=== PATIENT | female | born 1975 | race Caucasian/White ===

== ENCOUNTER 2018-06-11 20:36 | Emergency (ER) | payer OTHER, SELFPAY ==
[2018-06-11 20:41] VITALS: BP 157/101; PULSE 102; RESP 18; TEMP 36.2; O2SAT 96
--- NOTE | 2018-06-11 20:49 | DI.CT_ITS ---
SYMPTOMS/DIAGNOSIS: RIGHT UPPER QUADRANT ABDOMINAL PAIN, VOMITING, DIARRHEA, ? APPENDICITIS, CHOLECYSTIS, SMALL BOWEL OBSTRUCTION OR DIVERTICULITIS CT OF THE ABDOMEN AND PELVIS: Comparison is made with October,. The lung bases are clear. The liver, gallbladder, spleen, pancreas, adrenals and kidneys are unremarkable. The appendix appears normal. Diverticula are seen at the splenic flexure. There is no evidence of diverticulitis. There is no bowel dilatation or wall thickening. There are small mesenteric lymph nodes, which appear unchanged from the previous exam. There is some mild increased density in the surrounding mesentery. The bladder is unremarkable. The patient is status post hysterectomy. The aorta is normal in diameter and shows mild calcification. IMPRESSION: Stable appearance of small mesenteric lymph nodes. No acute abnormality is identified.
--- NOTE | 2018-06-11 20:49 | DI.RAD_ITS ---
SYMPTOM/DIAGNOSIS: INDIGESTION, ACID REFLUX PA AND LATERAL CHEST: Comparison is made with 02/09/17. The heart size is normal. The aorta is normal in diameter. The lungs appear clear. No hiatal hernia is visible. There are degenerative changes in the thoracic spine. IMPRESSION: No acute abnormality.
--- NOTE | 2018-06-11 20:51 | ED.GENADUL_ITS ---
Discharge Plan Disposition Patient Disposition: HOME Condition: Improving Discharge Details Chief Complaint: Abd Prob Clinical Impression: Abdominal pain, GERD (gastroesophageal reflux disease), Diarrhea, Vomiting Primary Care Provider: Harriet Sousa ED Provider: Kylah Collier Home Meds and New Rx's Prescriptions: New famotidine [Pepcid] 20 mg tablet 20 mg PO BID 14 Days Qty: 28 RF: 0 ondansetron HCl [Zofran] 4 mg tablet 4 mg PO TID PRN (Reason: nausea and vomiting) Qty: 6 RF: 0 Continued triamcinolone acetonide 0.5 % cream 1 applic TP .BID-QID Qty: 15 RF: 0 prednisone 5 mg tablet 5 mg PO DAILY Qty: 30 RF: 0 lidocaine [LC-5] 5 % cream 1 applic TP .BID-QID PRN (Reason: pain) Qty: 45 RF: 3 omeprazole 20 mg capsule,delayed release(DR/EC) 20 mg PO BID Qty: 180 RF: 0 ibuprofen 600 MG tablet 1 tab PO Q8H Qty: 21 RF: 0 Discharge Instructions Instructions: Gastroesophageal Reflux Disease (ED), Acute Nausea and Vomiting (ED), Acute Diarrhea (ED), Abdominal Pain (ED) Additional Instructions: Take Tylenol as needed and directed for pain. Take the Pepcid as directed. Take the Zofran as needed and directed for any nausea or vomiting. Follow-up with your primary care doctor in 1 week for reevaluation and for referral to surgery or gastroenterology if her symptoms do not improve or worsen for referral for possible upper endoscopy. Return immediately to the emergency department any worsening or new concerning symptoms. Referrals: Ayla Candelario DO [OSTEOPATHIC DOCTOR] - Discharge Data Discharge Physician: Kylah Collier Medical Decision Making 42-year-old female presents with acid reflux, acid taste in mouth, indigestion, right upper quadrant pain, nausea and headache for the past 5 days. Vomiting x1 2 days ago. Multiple episodes of diarrhea for the past few days. Pain worse with eating, particularly greasy fatty foods. Blood pressure mildly hypertensive. Heart rate 102. Afebrile. Patient appears nontoxic. Lungs clear to auscultation. Abdomen soft but mildly tender in right upper quadrant. No focal deficits. No meningeal signs. Differential diagnosis includes cholecystitis, biliary colic, appendicitis, small bowel obstruction. Will place an IV, bolus IV fluids, labs, urinalysis, CT abdomen and pelvis including cardiac workup with EKG, chest x-ray. Will give a dose of Pepcid and Zofran. EKG notes a rate of 87, sinus, no acute ST elevation or depression. QTc 438. QRS 104. 2330 --labs and imaging reviewed. Normal white blood cell count. Potassium 3.1. Troponin negative. Lipase negative. Chest x-ray negative. CT abdomen negative for acute findings. Patient was unable to give a urine sample and denied any urinary symptoms so this was canceled. Patient was given a GI cocktail and her symptoms improved. Patient is requesting to go home. She was given a prescription for Pepcid. She was instructed on foods to watch or hold with GERD. She is instructed to follow-up with her primary care doctor for reevaluation and for referral to general elder art or gastroenterology if her symptoms do not improve or worsen for an upper endoscopy for possible PUD or gastritis. She is instructed to return here immediately with any concerns. Medical Records Medical records reviewed: Yes I reviewed the patient's medical records. Imaging Data Radiologic Study: Radiologist's impression: CT Abdomen and Pelvis With Contrast EXAM DATE/TIME: 06/11/2018 8:51 PM FINDINGS: Lower thorax: No acute findings. ABDOMEN: Liver: Normal. No mass. Gallbladder and bile ducts: Normal. No calcified stones. No ductal dilation. Pancreas: Normal. No ductal dilation. Spleen: Normal. No splenomegaly. Adrenals: Normal. No mass. Kidneys and ureters: No renal stones or hydronephrosis. Stomach and bowel: Unremarkable. Appendix: Normal appendix. PELVIS: Bladder: Unremarkable as visualized. Reproductive: Hysterectomy. ABDOMEN and PELVIS: Intraperitoneal space: Normal. No free air. No significant fluid collection. Bones/joints: Multilevel degenerative changes throughout the spine. Grade 1 anterolisthesis of L5 on S1 and bilateral L5 pars defects. Soft tissues: Ventral hernia repair with mesh. Vasculature: Minimal atherosclerotic disease. No aneurysm or dissection. Lymph nodes: There is mild hazy stranding in the small bowel mesenteric root with associated shotty adenopathy less than 1 centimeter in size, unchanged from the prior study. This may be related to chronic inflammation. IMPRESSION: No acute findings. Mild hazy stranding in the small bowel mesentery with associated shotty adenopathy which may be related to chronic inflammation. Interval ventral hernia repair. XR Chest, 2 Views EXAM DATE/TIME: 06/11/2018 10:08 PM FINDINGS: Lungs: Unremarkable. No consolidation. Pleural space: Unremarkable. No pleural effusion. No pneumothorax. Heart/Mediastinum: Unremarkable. No cardiomegaly. Bones/joints: Unremarkable. IMPRESSION: No acute findings. Lab Data Lab results reviewed: Yes I reviewed the patient's lab results. ECG Data Attestation: I personally reviewed and interpreted this ECG (s) as follows: Interpretation: Rate of 87, sinus, no acute ST elevation or depression. QTc 438. QRS 104. HPI General Mode of arrival: ambulatory . Date/Time Provider Initiated Documentation: 06/11/18 20:48 . Limitations to Documentation: no limitations . Information obtained by: patient . HPI Narrative: Patient is a 42-year-old female who presents to the ED with a complaint of nausea, abdominal pain, and indigestion for 5 days. Patient states her symptoms started with dull intermittent right upper quadrant abdominal pain 5 days ago in addition to heartburn and acid taste in throat. Patient states that she saw her primary care doctor for the symptoms 2 days ago who diagnosed her with acid reflux. Patient states since then and especially tonight her right upper quadrant abdominal pain has gotten worse. She states the pain is worse with eating, particularly greasy food, and better with not eating. She states she vomited once 2 days ago which was mainly yellow and brown but denies any bleeding. She states she has had 7-8 episodes of watery brown diarrhea daily for the past few days but denies any rectal bleeding. She admits now to fatigue, headache and nausea, full feeling in chest and upper belly as well as right upper quadrant at this time. She denies any known fever, chest pain, shortness of breath. Related Data Home Medications Medication Instructions Recorded Confirmed ibuprofen 1 tab PO Q8H #21 tab 09/25/17 06/11/18 triamcinolone acetonide 0.5 % 1 applic TP .BID-QID #15 gm 02/24/18 06/11/18 topical cream lidocaine 5 % topical cream 1 applic TP .BID-QID PRN #45 gm 05/17/18 06/11/18 prednisone 5 mg tablet 5 mg PO DAILY #30 tab 06/01/18 06/11/18 omeprazole 20 mg capsule,delayed 20 mg PO BID #180 tab-cap 06/09/18 06/11/18 release famotidine [Pepcid] 20 mg PO BID 14 Days #28 tab 06/12/18 ondansetron HCl [Zofran] 4 mg PO TID PRN #6 tab 06/12/18 Previous Rx's Medication Instructions Recorded ibuprofen 1 tab PO Q8H #21 tab 09/25/17 triamcinolone acetonide 0.5 % 1 applic TP .BID-QID #15 gm 02/24/18 topical cream lidocaine 5 % topical cream 1 applic TP .BID-QID PRN #45 gm 05/17/18 prednisone 5 mg tablet 5 mg PO DAILY #30 tab 06/01/18 omeprazole 20 mg capsule,delayed 20 mg PO BID #180 tab-cap 06/09/18 release famotidine [Pepcid] 20 mg PO BID 14 Days #28 tab 06/12/18 ondansetron HCl [Zofran] 4 mg PO TID PRN #6 tab 06/12/18 Allergies Allergy/AdvReac Type Severity Reaction Status Date / Time No Known Allergies Allergy Unverified 06/11/18 20:42 General Stated Complaint: Abd Prob MIGUEL: 3 Review of Systems Review of Systems All systems reviewed & are unremarkable except as noted in HPI and below Constitutional Reports as per HPI, Denies chills, Denies fever(s) and Reports headache(s) Eyes Denies blurry vision ENT Denies dizziness, Reports headache(s), Denies sore throat and Denies throat swelling Cardiovascular Denies chest pain and Denies dyspnea Respiratory Denies cough and Denies dyspnea Gastrointestinal Reports abdominal pain, Reports diarrhea, Reports nausea and Reports vomiting Genitourinary Denies hematuria and Denies dysuria Musculoskeletal Denies back pain and Denies numbness Integumentary/Breasts Denies lesions and Denies rash Neurologic Denies dizziness, Reports headache(s), Denies focal weakness and Denies numbness Allergic/Immunologic Denies throat swelling FORMERLY [facility], 1928–1983 Medical History Atopic dermatitis (Chronic) Tobacco use disorder (Chronic) Tobacco use disorder Surgical History section (~1994) Dilation and curettage (02/11/04) Hernia Repair, Ventral (10/23/14) Hysterectomy, Laproscopic (04/22/04) Social History household members: children number of children: 2 highest education level completed: high school graduate service: No current occupational status: employed current occupation: [employer] pets and animals: No Hx Recent Travel: No sexually active: No current gender identity: female well-balanced diet: daily or most days caffeine: Yes Type: carbonated beverages what type of physical activity do you participate in: walking frequency: 5-6 times per week Smoking and Tabacco status: Current every day alcohol intake: former substance use type: marijuana Exam Const General: cooperative, healthy appearing and no acute distress HENMT Head: normal to inspection Face and sinus: normal facial exam Eyes General: appearance normal, both eyes and all related structures Pupils: PERRL EOM: EOM intact bilaterally Neck Neck: normal visual inspection and No submandibular swelling Lymphatic: no lymphadenopathy noted Chest Chest: normal inspection of the chest and no tenderness Resp Effort & Inspection: normal respiratory effort and able to speak in complete sentences Auscultation: clear to auscultation bilaterally Cardio Rate: regular rate Rhythm: regular rhythm GI Inspection: normal to inspection Palpation: soft, not firm, not rigid and tender in the RUQ Auscultation: normal bowel sounds Skin General skin exam: no rashes or lesions noted Neuro General: alert, awake and oriented x3 Cranial Nerves: CN's II-XI intact bilaterally Cognition: normal cognition Speech: speech normal Motor: muscle tone normal throughout and strength 5/5 throughout Sensory Exam: no sensory deficits noted Extrem General: normal to inspection, full ROM, normal capillary refill, no calf tenderness bilaterally and no edema Psych Appearance: grossly normal Mental Status: mental status grossly normal Speech and Movement: speech and movement normal Affect: normal affect Course Vital Signs Temperature 97.2 F L 06/11/18 20:41 Pulse 102 H 06/11/18 20:41 Respiratory Rate 18 06/11/18 20:41 Blood Pressure 157/101 H 06/11/18 20:41 Pulse Oximetry 96 06/11/18 20:41 Temperature 97.2 F L 06/11/18 20:41 Temperature Source Skin 06/11/18 20:41 Pulse 102 H 06/11/18 20:41 Respiratory Rate 18 06/11/18 20:41 Respiratory Effort Non-Labored 06/11/18 20:44 Blood Pressure 157/101 H 06/11/18 20:41 Pulse Oximetry 96 06/11/18 20:41 Oxygen Delivery Method Room Air 06/11/18 20:41 Oxygen Flow Rate 0 06/11/18 20:41
[2018-06-11] MEDS: Normal Saline 1,000 ML 1000 ML IV (21:06)
[2018-06-11] MEDS: Normal Saline Flush 10 ML SYR IVP ×2 (21:06→21:56)
[2018-06-11 21:11] LABS: Abs Immature Grans 0.03 k/cumm (0.0-0.09); Absolute Basophil Count 0.02 k/cumm (0.0-0.2); Absolute Eosinophil Count 0.16 k/cumm (0.0-0.7); Absolute Lymphocyte Count 2.54 k/cumm (1.2-3.4); Absolute Monocyte Count 1.16 k/cumm (0.11-0.7); Absolute Neutrophil Count 3.77 k/cumm (1.2-6.7); Basophils % 0.3; Eosinophils % 2.1; HCT 45.7 % (36.0-46.0); HGB 16.6 g/dL (12.0-15.5); Immature Grans % 0.4; Lymphocytes % 33.1; Mean Corp. HGB Concentration 36.3 g/dL (32.0-36.0); Mean Corpuscular Hemoglobin 30.3 pg (27.0-33.0); Mean Corpuscular Volume 83.5 fL (80-95); Mean Platelet Volume 9.8 fL (8.0-11.0); Monocytes % 15.1; Platelet Count 215 x1000/uL (130-400); RBC 5.47 m/cumm (4.00-5.20); RBC Distribution Width 12.5 % (11.7-14.6); White Blood Cell Count 7.68 k/cumm (4.4-10.8)
[2018-06-11] MEDS: Ondansetron 4 MG/2 ML VIAL IVP (21:28)
[2018-06-11] MEDS: FAMOTIDINE 20 MG/50 ML BAG 200 MG IVPB (21:30)
[2018-06-11 21:34] LABS: ALT 16 U/L (12-78); AST 23 U/L (15-37); Albumin 3.9 g/dL (3.4-5.0); Alkaline Phosphatase 30 U/L (46-116); Anion Gap 10.4 mmol/L (3-11); BUN 12 mg/dL (7-18); Bilirubin, Total 0.3 mg/dL (0.2-1.0); CO2 28.6 mmol/L (21.0-32.0); CREATININE 0.78 mg/dL (0.55-1.02); Calcium 8.6 mg/dL (8.5-10.1); Chloride 101 mmol/L (98-107); Glucose 112 mg/dL (70-100); Lipase 135 U/L (73-393); Magnesium 2.2 mg/dL (1.8-2.4); Potassium 3.1 mmol/L (3.5-5.1); Sodium 140 mmol/L (136-145); Total Protein 7.5 g/dL (6.4-8.2)
[2018-06-11 21:37] LABS: Troponin I < 0.02 ng/mL (0.00-0.06)
[2018-06-11] MEDS: Omnipaque 350 MG/ML 100 ML BTL IJ (21:59)
--- NOTE | 2018-06-11 23:05 | DI.VRAD_ITS ---
EXAM: CT Abdomen and Pelvis With Contrast EXAM DATE/TIME: 06/11/2018 8:51 PM CLINICAL HISTORY: 42 years old, female; Pain and signs and symptoms; Nausea and vomiting and other: Diarrhea; Abdominal pain; Localized; Right upper quadrant (ruq); Prior surgery; Surgery date: 6+ months; Surgery type: Hernia repair with mesh 3 years ago and hysterectomy; Patient HX: Ruq pain, nausea, vomiting since tuesday TECHNIQUE: Axial computed tomography images of the abdomen and pelvis with intravenous contrast. All CT scans at this facility use at least one of these dose optimization techniques: automated exposure control; mA and/or kV adjustment per patient size (includes targeted exams where dose is matched to clinical indication); or iterative reconstruction. Coronal and sagittal reformatted images were created and reviewed. CONTRAST: Contrast Material: 100 ml of Omnipaque 350; Contrast Route: IV COMPARISON: CT ABD PELVIS WITH CONTRAST 10/13/2014 7:19 PM FINDINGS: Lower thorax: No acute findings. ABDOMEN: Liver: Normal. No mass. Gallbladder and bile ducts: Normal. No calcified stones. No ductal dilation. Pancreas: Normal. No ductal dilation. Spleen: Normal. No splenomegaly. Adrenals: Normal. No mass. Kidneys and ureters: No renal stones or hydronephrosis. Stomach and bowel: Unremarkable. Appendix: Normal appendix. PELVIS: Bladder: Unremarkable as visualized. Reproductive: Hysterectomy. ABDOMEN and PELVIS: Intraperitoneal space: Normal. No free air. No significant fluid collection. Bones/joints: Multilevel degenerative changes throughout the spine. Grade 1 anterolisthesis of L5 on S1 and bilateral L5 pars defects. Soft tissues: Ventral hernia repair with mesh. Vasculature: Minimal atherosclerotic disease. No aneurysm or dissection. Lymph nodes: There is mild hazy stranding in the small bowel mesenteric root with associated shotty adenopathy less than 1 centimeter in size, unchanged from the prior study. This may be related to chronic inflammation. IMPRESSION: No acute findings. Mild hazy stranding in the small bowel mesentery with associated shotty adenopathy which may be related to chronic inflammation. Interval ventral hernia repair. Dictated and Authenticated by: Soco Lopez MD. Ordering:VIVIAN Montero MD
--- NOTE | 2018-06-11 23:06 | DI.VRAD_ITS ---
EXAM: XR Chest, 2 Views EXAM DATE/TIME: 06/11/2018 10:08 PM CLINICAL HISTORY: 42 years old, female; Condition or disease; Other: Acid reflux; Patient HX: Indigestion, acid reflux, R/O acute disease TECHNIQUE: XR of the chest, 2 views. COMPARISON: CR CHEST 2 VIEWS PA,LAT 02/09/2017 6:37 PM FINDINGS: Lungs: Unremarkable. No consolidation. Pleural space: Unremarkable. No pleural effusion. No pneumothorax. Heart/Mediastinum: Unremarkable. No cardiomegaly. Bones/joints: Unremarkable. IMPRESSION: No acute findings. Dictated and Authenticated by: Soco Lopez MD. Ordering:VIVIAN Montero MD
[2018-06-11] MEDS: Potassium Chloride 20 MEQ TABCR 40 MEQ PO (23:25)
[2018-06-11 23:38] VITALS: BP 135/88; PULSE 67; RESP 16; O2SAT 94
[2018-06-12] MEDS: Ondansetron O.D.T. 4 MG TABEF PO (01:13)
[2018-06-12 01:14] VITALS: BP 135/88; PULSE 67; RESP 16; O2SAT 94
== END 2018-06-12 01:15 | disposition home or self-care (01) ==
PROVIDERS: Emergency Provider Physician Assistant; PCP Nurse Practitioner Family
DX: K21.9 Gastro-esophageal reflux disease without esophagitis (principal); R11.2 Nausea with vomiting, unspecified; R19.7 Diarrhea, unspecified; R10.11 Right upper quadrant pain; K30 Functional dyspepsia
CPT/HCPCS: 36415; 80053; 83690; 93005; 96361; 96365; 96366; 96375; 99285; 71046; 74177; 83735; 84484; 85025; 93010; J2405; J3490

== ENCOUNTER 2018-06-24 14:29 | Outpatient (REF) | payer OTHER, SELFPAY ==
[2018-06-27 14:38] LABS: Helicobacter pylori Ag, Feces Positive (NEGAT)
== END 2018-06-24 14:49 ==
LOC: LBN 14:29
PROVIDERS: PCP Nurse Practitioner Family; Visit Provider Nurse Practitioner Family
DX: K27.9 Peptic ulcer, site unspecified, unspecified as acute or chronic, without hemorrhage or perforation (principal); R11.0 Nausea; R68.81 Early satiety
CPT/HCPCS: 87338

== ENCOUNTER 2018-07-20 18:52 | Emergency (ER) | payer OTHER, SELFPAY ==
[2018-07-20 18:55] VITALS: BP 140/87; PULSE 90; RESP 16; TEMP 36.4; O2SAT 95
--- NOTE | 2018-07-20 19:19 | W.ED.GENAD ---
Discharge Plan Disposition Patient Disposition: HOME Condition: Good Discharge Details Chief Complaint: Laceration Clinical Impression: Skin tear, Crush injury Primary Care Provider: Harriet Sousa ED Provider: Boone Jain Home Meds and New Rx's Prescriptions: No Action triamcinolone acetonide 0.5 % cream 1 applic TP .BID-QID Qty: 15 RF: 0 lidocaine [LC-5] 5 % cream 1 applic TP .BID-QID PRN (Reason: pain) Qty: 45 RF: 3 omeprazole 20 mg capsule,delayed release(DR/EC) 20 mg PO BID Qty: 180 RF: 0 Medical Decision Making This is a 42-year-old female with no past medical history who is [id number] who comes in for evaluation of her ring finger on her left hand after it was squished by a large part at work. Exam demonstrates a small L-shaped laceration that is 5 mm. No evidence of tendon injury, normal flexion and extension strength, no subungual hematoma. Laceration is notably superficial, with no evidence of deep involvement. With no signs of deep involvement, no evidence of tendon abnormality, patient signs and symptoms are inconsistent with a severe open fracture, and antibiotics are not indicated. I did discuss potential imaging and the patient would like to hold off on any image imaging at this time. I did discuss risks and benefits of holding off on imaging and the patient understands. The finger was scrubbed vigorously with chlorhexidine and washed with copious amounts of normal saline. The very small skin flap was then glued together, patient tolerated this well. Finger was placed in a splint. We discussed the importance of follow-up with her PCP, as well as reasons for which to return the patient understands. I have extensively reviewed the treatment plan and discharge instructions with the patient. I have addressed all patient concerns at this time. The patient was made aware of what symptoms to monitor for that would warrant a return to the emergency department. Discussed the plan with the patient, they demonstrate verbal understanding and agreement with our assessment and plan at this time. HPI General Date/Time Provider Initiated Documentation: 07/20/18 19:04. HPI Narrative: This is a 42-year-old female with no significant past medical history who is [id number] who presents today for injury to her left nondominant ring finger. 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 Patient's tetanus was last administered in 2014. She denies any complaint of pain at the inner phalangeal joint or the DIP joint. Pain is made worse with palpation. No bruising under the nail. No active bleeding. She denies any numbness or tingling. She denies any other injury or complaints. She denies any weakness with flexion or extension of the fingertip. No other modifying factors. Related Data Home Medications Medication Instructions Recorded Confirmed triamcinolone acetonide 0.5 % 1 applic TP .BID-QID #15 gm 02/24/18 07/20/18 topical cream lidocaine 5 % topical cream 1 applic TP .BID-QID PRN #45 gm 05/17/18 07/20/18 omeprazole 20 mg capsule,delayed 20 mg PO BID #180 tab-cap 06/09/18 07/20/18 release Previous Rx's Medication Instructions Recorded triamcinolone acetonide 0.5 % 1 applic TP .BID-QID #15 gm 02/24/18 topical cream lidocaine 5 % topical cream 1 applic TP .BID-QID PRN #45 gm 05/17/18 omeprazole 20 mg capsule,delayed 20 mg PO BID #180 tab-cap 06/09/18 release Allergies Allergy/AdvReac Type Severity Reaction Status Date / Time No Known Allergies Allergy Unverified 07/20/18 18:59 General Stated Complaint: Laceration MIGUEL: 4 Review of Systems Review of Systems All systems reviewed & are unremarkable except as noted in HPI and below PFSH Social History Smoking/Tobacco Use Status: Current every day Tobacco Type: cigarettes Alcohol Intake: former Drug use: Occasionally Substance use type: marijuana Household members: children Number of Children: 2 current occupation: [employer] [place] Pets and animals: No Sexually active: No Current gender identity: female What type of physical activity do you participate in: walking Frequency: 5-6 times per week Do you feel safe in your relationship?: Yes Exam Narrative Exam Narrative: 1.Const: Well-nourished, Well-developed, appearing stated age 2.Eyes: PERRL, no conjunctival injection, and symmetrical lids. 3.ENT: Atraumatic external nose and ears. Moist MM. Neck: Symmetric, trachea midline, No thyromegaly. 4.CVS: +S1/S2, No murmurs or gallops. Peripheral pulses 2+ and equal in all extremities. Brisk capillary refill in all extremities. 5.RESP: Unlabored respiratory effort. Clear to auscultation bilaterally. No wheezes rales or rhonchi 6.GI: Soft, Nontender/Nondistended, No hepatosplenomegaly. No guarding or rebound. 7.MSK: Normocephalic, Extremities w/o deformity. No cyanosis or clubbing, Normal movement of all extremities, , Including excellent flexion and extension of the injured finger. There is no evidence of laxity or tendon deficit for flexion extension at the DIP joint for the patient's ring finger on her left hand. No subungual hematoma. Small L-shaped laceration that is 5 mm on each angle. No evidence of deep tissue involvement. Laceration is notably superficial. 8.Skin: Warm, Dry. Please see musculoskeletal for laceration description. 9.Neuro: multigrapher II-XII grossly intact. Sensation grossly intact, no focal neurologic deficits. 10.Psych: (AAO) x3. Appropriate mood and affect Course Vital Signs Temperature 36.4 C L 07/20/18 18:55 Pulse 90 07/20/18 18:55 Respiratory Rate 16 07/20/18 18:55 Blood Pressure 140/87 07/20/18 18:55 Pulse Oximetry 95 07/20/18 18:55 Temperature 36.4 C L 07/20/18 18:55 Temperature Source Skin 07/20/18 18:55 Pulse 90 07/20/18 18:55 Respiratory Rate 16 07/20/18 18:55 Respiratory Effort 07/20/18 18:57 Blood Pressure 140/87 07/20/18 18:55 Pulse Oximetry 95 07/20/18 18:55 Pain Level 10 07/20/18 18:55
--- NOTE | 2018-07-20 19:25 | ED.GENADUL_ITS ---
Discharge Plan Disposition Patient Disposition: HOME Condition: Good Discharge Details Chief Complaint: Laceration Clinical Impression: Skin tear, Crush injury Primary Care Provider: Harriet Sousa ED Provider: Boone Jain Home Meds and New Rx's Prescriptions: No Action triamcinolone acetonide 0.5 % cream 1 applic TP .BID-QID Qty: 15 RF: 0 lidocaine [LC-5] 5 % cream 1 applic TP .BID-QID PRN (Reason: pain) Qty: 45 RF: 3 omeprazole 20 mg capsule,delayed release(DR/EC) 20 mg PO BID Qty: 180 RF: 0 Medical Decision Making This is a 42-year-old female with no past medical history who is [id number] who comes in for evaluation of her ring finger on her left hand after it was squished by a large part at work. Exam demonstrates a small L-shaped laceration that is 5 mm. No evidence of tendon injury, normal flexion and extension strength, no subungual hematoma. Laceration is notably superficial, with no evidence of deep involvement. With no signs of deep involvement, no evidence of tendon abnormality, patient signs and symptoms are inconsistent with a severe open fracture, and antibiotics are not indicated. I did discuss potential imaging and the patient would like to hold off on any image imaging at this time. I did discuss risks and benefits of holding off on imaging and the patient understands. The finger was scrubbed vigorously with chlorhexidine and washed with copious amounts of normal saline. The very small skin flap was then glued together, patient tolerated this well. Finger was placed in a splint. We discussed the importance of follow-up with her PCP, as well as reasons for which to return the patient understands. I have extensively reviewed the treatment plan and discharge instructions with the patient. I have addressed all patient concerns at this time. The patient was made aware of what symptoms to monitor for that would warrant a return to the emergency department. Discussed the plan with the patient, they demonstrate verbal understanding and agreement with our assessment and plan at this time. HPI General Date/Time Provider Initiated Documentation: 07/20/18 19:04 . HPI Narrative: This is a 42-year-old female with no significant past medical history who is [id number] who presents today for injury to her left nondominant ring finger. 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 Patient's tetanus was last administered in 2014. She denies any complaint of pain at the inner phalangeal joint or the DIP joint. Pain is made worse with palpation. No bruising under the nail. No active bleeding. She denies any numbness or tingling. She denies any other injury or complaints. She denies any weakness with flexion or extension of the fingertip. No other modifying factors. Related Data Home Medications Medication Instructions Recorded Confirmed triamcinolone acetonide 0.5 % 1 applic TP .BID-QID #15 gm 02/24/18 07/20/18 topical cream lidocaine 5 % topical cream 1 applic TP .BID-QID PRN #45 gm 05/17/18 07/20/18 omeprazole 20 mg capsule,delayed 20 mg PO BID #180 tab-cap 06/09/18 07/20/18 release Previous Rx's Medication Instructions Recorded triamcinolone acetonide 0.5 % 1 applic TP .BID-QID #15 gm 02/24/18 topical cream lidocaine 5 % topical cream 1 applic TP .BID-QID PRN #45 gm 05/17/18 omeprazole 20 mg capsule,delayed 20 mg PO BID #180 tab-cap 06/09/18 release Allergies Allergy/AdvReac Type Severity Reaction Status Date / Time No Known Allergies Allergy Unverified 07/20/18 18:59 General Stated Complaint: Laceration MIGUEL: 4 Review of Systems Review of Systems All systems reviewed & are unremarkable except as noted in HPI and below PFSH Social History Smoking/Tobacco Use Status: Current every day Tobacco Type: cigarettes Alcohol Intake: former Drug use: Occasionally Substance use type: marijuana Household members: children Number of Children: 2 current occupation: [employer] Pets and animals: No Sexually active: No Current gender identity: female What type of physical activity do you participate in: walking Frequency: 5-6 times per week Do you feel safe in your relationship?: Yes Exam Narrative Exam Narrative: 1.Const: Well-nourished, Well-developed, appearing stated age 2.Eyes: PERRL, no conjunctival injection, and symmetrical lids. 3.ENT: Atraumatic external nose and ears. Moist MM. Neck: Symmetric, trachea midline, No thyromegaly. 4.CVS: +S1/S2, No murmurs or gallops. Peripheral pulses 2+ and equal in all extremities. Brisk capillary refill in all extremities. 5.RESP: Unlabored respiratory effort. Clear to auscultation bilaterally. No wheezes rales or rhonchi 6.GI: Soft, Nontender/Nondistended, No hepatosplenomegaly. No guarding or rebound. 7.MSK: Normocephalic, Extremities w/o deformity. No cyanosis or clubbing, Normal movement of all extremities, , Including excellent flexion and extension of the injured finger. There is no evidence of laxity or tendon deficit for flexion extension at the DIP joint for the patient's ring finger on her left hand. No subungual hematoma. Small L-shaped laceration that is 5 mm on each angle. No evidence of deep tissue involvement. Laceration is notably superficial. 8.Skin: Warm, Dry. Please see musculoskeletal for laceration description. 9.Neuro: plan checker II-XII grossly intact. Sensation grossly intact, no focal neurologic deficits. 10.Psych: (AAO) x3. Appropriate mood and affect Course Vital Signs Temperature 36.4 C L 07/20/18 18:55 Pulse 90 07/20/18 18:55 Respiratory Rate 16 07/20/18 18:55 Blood Pressure 140/87 07/20/18 18:55 Pulse Oximetry 95 07/20/18 18:55 Temperature 36.4 C L 07/20/18 18:55 Temperature Source Skin 07/20/18 18:55 Pulse 90 07/20/18 18:55 Respiratory Rate 16 07/20/18 18:55 Respiratory Effort 07/20/18 18:57 Blood Pressure 140/87 07/20/18 18:55 Pulse Oximetry 95 07/20/18 18:55 Pain Level 10 07/20/18 18:55
== END 2018-07-20 20:04 | disposition home or self-care (01) ==
LOC: ER 20:09
PROVIDERS: Emergency Provider Student in an Organized Health Care Education/Training Program; PCP Nurse Practitioner Family
DX: S67.195A Crushing injury of left ring finger, initial encounter (principal); S61.215A Laceration without foreign body of left ring finger without damage to nail, initial encounter; W22.8XXA Striking against or struck by other objects, initial encounter
CPT/HCPCS: 12001

== ENCOUNTER 2018-08-10 12:06 | Outpatient (REF) | payer OTHER, SELFPAY ==
[2018-08-15 14:14] LABS: Helicobacter pylori Ag, Feces Negative (NEGAT)
== END 2018-08-10 12:26 ==
LOC: LBN 12:06
PROVIDERS: PCP Nurse Practitioner Family; Visit Provider Nurse Practitioner Family
DX: A04.8 Other specified bacterial intestinal infections (principal)
CPT/HCPCS: 87338

== ENCOUNTER 2018-08-30 02:00 | Outpatient (CLI) | payer OTHER, SELFPAY ==
--- NOTE | 2018-08-30 09:03 | DI.US_ITS ---
SYMPTOMS/DIAGNOSIS: RIGHT UPPER QUADRANT PAIN, NAUSEA, EARLY SATIETY, R10.11, R11.0, R68.81 ABDOMINAL ULTRASOUND: Comparison is made with CT dated June,. The liver is normal in size and echogenicity. There is a 7 mm hyperechoic lesion in the lateral aspect of the right lobe of the liver, which is consistent with a small hemangioma. No abnormality is visible on CT. The gallbladder is unremarkable. No stones or wall thickening is seen. There is no pericholecystic fluid. The spleen, kidneys, pancreas and aorta are unremarkable. IMPRESSION: A small liver hemangioma. No acute abnormality.
== END 2018-08-30 02:20 ==
PROVIDERS: PCP Nurse Practitioner Family; Visit Provider Nurse Practitioner
DX: R68.81 Early satiety (principal); R11.0 Nausea; R10.11 Right upper quadrant pain; D18.03 Hemangioma of intra-abdominal structures
CPT/HCPCS: 76700

== ENCOUNTER 2018-09-14 01:13 | Outpatient (CLI) | payer OTHER, SELFPAY ==
--- NOTE | 2018-09-14 08:22 | DI.NM_ITS ---
SYMPTOM/DIAGNOSIS: RUQ PAIN, NAUSEA, BLOATING, R10.9,R11.0 CCK HIDA SCAN: The patient received 4.8 millicuries of Technetium 99 M Mebrofenin. The patient then received 1.1 micrograms of CCK intravenously according to protocol. The liver, bile duct and small bowel were visualized at the appropriate time interval. There is delayed filling of the gallbladder. The gallbladder ejection fraction was calculated at 27% which is below normal (normal ejection fraction is greater than 40%). IMPRESSION: Abnormal CCK Hida scan as identified by delayed filling of the gallbladder and low gallbladder ejection fraction. This may reflect gallbladder dyskinesia.
== END 2018-09-14 01:33 ==
PROVIDERS: PCP Nurse Practitioner Family; Visit Provider Surgery
DX: R10.11 Right upper quadrant pain (principal); R11.0 Nausea; R14.0 Abdominal distension (gaseous); K87 Disorders of gallbladder, biliary tract and pancreas in diseases classified elsewhere
CPT/HCPCS: 78227

== ENCOUNTER 2018-09-26 11:10 | Day surgery (SDC) | payer OTHER, SELFPAY ==
[2018-09-26] VITALS (9 sets, daily range): BP systolic 88–139; BP diastolic 39–107; PULSE 53–79; RESP 12–22; TEMP 36–36.6; O2SAT 94–100
[2018-09-26] MEDS: Lactated Ringers 1,000 ML 80 ML IV (11:37)
[2018-09-26] MEDS: ceFAZolin 2 GM/50 ML BAG IVPB (12:27)
--- NOTE | 2018-09-26 13:45 | GB_PTH ---
PATIENT: Sophie Beaulieu LOC: [facility] U#:[id number] AGE/SX: 43/F ROOM: RE09/26/[address]: Ayla Candelario : 1975 BED: DIS: 09/26/2018 SPEC #: [id number] RECD: 09/26/18 17:40 STATUS: SANJEEV REQ #: [id number] LUCIANO: 09/26/18 13:[address]: Ayla Candelario DEPT: Surgical Specimen RECD BY: Maritza Leahy ENTERED: 09/26/18 17:41 SP TYPE: GB OTHR DR: Harriet Sousa APRN Tissues: 1 - GALLBLADDER Procedures: GROSS AND MICRO LEVEL 3 Comments: [id number]
[2018-09-26] MEDS: Cellulose,Oxidized 4X8 1 PACKET MC (13:47)
--- NOTE | 2018-09-26 14:22 | ROE_ITS ---
Date of service: 09/26/18 Time of Service: 14:20 Operative Note DATE OF PROCEDURE: 09/26/18 PRE-OP DIAGNOSIS: biliary dyskinesia POST-OP DIAGNOSIS: other (lysis of adhesions <30 mins ) PROCEDURE: lap keila lysis adhesions STRUCTURAL STEEL ENGINEER: Ellen Colby ANESTHESIA: ROSA ESTIMATED BLOOD LOSS: 10 PATHOLOGY: other COMPLICATIONS: None Patient was transported to: PACU Patient's condition: stable Procedure Description: Sophie is seen regarding acute on chronic biliary dyskenisia and is here today for laparoscopic cholecystectomy. Informed consent was obtained, explaining risks and benefits of the procedure including but not limited to bleeding, infection, pneumonia, blood clots, possible damage to bowel, bladder, blood vessels, bile ducts, possible open procedure, complications of general anesthesia and other unforetold complications. PROCEDURE: The patient agrees and is brought to the operative room suite and placed in supine position. Anesthesia was administered per the Department of Anesthesia. The patient did receive IV antibiotics. NG tube and Aponte catheter are placed. The patient was prepped and draped in the usual sterile fashion using DuraPrep scrub solution. Pause for the cause was done. 20 mL of 1% buffered lidocaine was used for local anesthetization. A stab incision was made in the umbilicus and the Verres inserted. Drop test was positive and insufflation was begun. When 15 mm of pressure was noted on the monitor, the Veress was removed and #5 port inserted. The camera was inserted through the port and shows no damage to underlying structures. A 10 mm port was then placed in the epigastric position under direct visualization following creation of local field blocks as well as two 5 mm ports in the right upper quadrant. She has dense adhesion up to the area where her umbilical hernia was reapired w/ mesh. The are taken down w/ a combination of sharp dissection adn cautery. These are only omentum adn no bowel. The GB has adhesions adhered from the stomach and omentum as well. these are taken down w/ blunt and sharp dissection. The gallbladder fundus was grasped and retracted towards the right shoulder. Infundibulum was grasped and retracted laterally. The hepat-duodenal ligament is entered. The cystic duct and artery are dissected out and the most inferior portion of the gallbladder plate is removed from the liver and the critical view of safety was obtained after clearing away all fatty material. Endo Clips were placed across the duct and artery and these structures are divided. The remainder of the gallbladder was excised from the liver bed. The gallbladder was placed in a bag and brought out. Examination of the gallbladder shows indeed the cystic duct and artery to have been divided. The remainder of the abdomen was copiously irrigated with a liter of saline. All saline is removed. There is no bleeding or bile leakage from the liver bed or the clips sites. The Salvador-Ortiz needle was used to close the 10 mm port site with an 0 Vicryl. All ports and instruments are removed. Pneumoperitoneum is evacuated and the port sites are monitored to make sure there is no bleeding at the time of desufflation. The fasca/mesh on the umbilical port is closed w/ O Vircryl. Port sites are irrigated and the skin is closed with 4-0 Monocryl in a running subcuticular fashion. Steri tapes and sterile dressings are applied. The patient tolerated the procedure well without complications, transferred to the recovery room in stable condition. ISAAC CRANE, DO
--- NOTE | 2018-09-26 14:23 | W.PM.DSUDISC ---
Discharge Plan Disposition Patient Disposition: HOME Condition: Good Discharge Details Reason For Visit: biliary dyskinesia Attending Provider: Ayla Candelario Primary Care Provider: Harriet Sousa Home Meds and New Rx's Prescriptions: New ibuprofen 800 mg tablet 800 mg PO TID PRN (Reason: pain) Qty: 30 RF: 3 ondansetron HCl 4 mg tablet 4 mg PO QID PRN (Reason: nausea and vomiting) Qty: 7 RF: 0 oxycodone 5 mg capsule 5 mg PO Q6H MDD 4 PRN (Reason: pain) Qty: 14 RF: 0 Continued triamcinolone acetonide 0.5 % cream 1 applic TP .BID-QID Qty: 15 RF: 0 lidocaine [LC-5] 5 % cream 1 applic TP .BID-QID PRN (Reason: pain) Qty: 45 RF: 3 Discharge Instructions Additional Instructions: Care after Gallbladder Surgery -You should walk frequently, gradually, increasing the distance. You may climb stairs, just go slowly. -You can take Advil 800mg 3 times a day with food for the first week for pain; you may take your prescription medication as prescribed-in addition to the Advil. Discontinue Advil if it hurts your stomach. Do not take Advil if you are intolerant to aspirin products or have stomach problems. ? Use an ice bag for the first 72 hours. This helps to decrease swelling, which causes pain. It is normal to be more sore/painful and swollen towards the end of the day and first thing in the morning. ? Gallbladder surgery can make you very nauseated; use zofran for nausea, for the first 24 hours. The nausea generally stops after 24 hours. ? Use milk of magnesia or prune juice to prevent constipation (this is a particular side effect of pain medication). Do not allow yourself to become constipated. ? Avoid fatty or greasy foods; introduce these slowly, with care, after about 1 month. Follow the low-fat diet sheet that will be given to you at the office or hospital. ? Start out eating very small, bland amounts of food. Do not take pain pills on an empty stomach. - You can remove the band-aids and take a shower 24 hours after surgery. There will be some narrow strips of tape across your incisions (under the band-aids). DO NOT REMOVE THESE. It is all right if they get wet. They will be removed in the doctor?s office. ? Do not go swimming or sit in a hot tub for two weeks. ? Replace the band-aids with clean, dry ones or leave them off. ? There are no stitches to remove. ? Do not drive your car for one week and then only if you have no pain and can move freely. Do not drive if you are taking pain narcotic pain medications. ? You may resume sexual activity whenever pain and soreness subside in 2 weeks. ? Do no lift anything over 5 lbs for the first 10 days. Minimize strenuous activity for the next two weeks. ? You may return to work in one week, or when you feel able ? You should return to [facility] in 1-2 wks. My Medications for pain and nausea are: ibuprofen and oxycodone and zofran When to Call the Office: ? If the incision becomes red or swollen, or there is more than a little drainage from it. ? If you develop a temperature higher than 100.5 F. ? If your eyes turn yellow ? Vomiting and can?t keep fluids down Stand Alone Forms: DSU Post op Instructions, Timothy Hassan (DSU) Discharge Orders Discharge Orders: Discharge Order (Routine); Ordered 09/26/18 Ordered By: Ayla Candelario DS: Diagnosis Discharge Diagnosis (1) Biliary dyskinesia: Status: Acute
[2018-09-26] MEDS: fentaNYL 100 MCG/2 ML VIAL IVP (14:54)
[2018-09-26] MEDS: HYDROcodone 5/Acetaminophen 325 TAB PO (15:36)
== END 2018-09-26 16:45 | disposition home or self-care (01) ==
PROVIDERS: PCP Nurse Practitioner Family; Visit Provider Surgery
PROC: 0FT44ZZ Resection of Gallbladder, Percutaneous Endoscopic Approach (ICD-10-PCS; CPT 47562; principal; 2018-09-26 12:30)
DX: K82.8 Other specified diseases of gallbladder (principal); K82.4 Cholesterolosis of gallbladder; F17.210 Nicotine dependence, cigarettes, uncomplicated
CPT/HCPCS: 47562; 88304; J0690; J3010

== ENCOUNTER 2019-01-05 10:54 | Emergency (ER) | payer OTHER, SELFPAY ==
[2019-01-05 10:57] VITALS: BP 151/85; PULSE 90; RESP 16; TEMP 36.7; O2SAT 97
--- NOTE | 2019-01-05 11:11 | ED.GENADUL_ITS ---
Discharge Plan Disposition Patient Disposition: HOME Condition: Stable Discharge Details Chief Complaint: Cellulitis Clinical Impression: Cellulitis of fifth toe, right Primary Care Provider: Harriet Sousa ED Provider: Schuyler Mercado Home Meds and New Rx's Prescriptions: New cephalexin 500 mg capsule 500 mg PO TID 7 Days Qty: 21 RF: 0 Discharge Instructions Instructions: Cellulitis (ED) Additional Instructions: Hard sole shoe for comfort. Take antibiotics as prescribed. Elevate to reduce pain and swelling. Return to develop a fever, shaking chills, or any other acute concern May use cast shoe if needed. Medical Decision Making 43-year-old female who was stepped on the right foot yesterday suffered a blister and today with erythema, redness, swelling. Referred for x-ray without evidence of underlying fracture. Consistent with early cellulitis which I will place her on Keflex. Offered a postop shoe for comfort. Stable for outpatient management. HPI General Mode of arrival: ambulatory . Date/Time Provider Initiated Documentation: 01/05/19 11:02 . Limitations to Documentation: no limitations . Information obtained by: patient . History of Present Illness 43 year old F presents to the emergency department with the chief complaint of Right fifth toe pain and swelling, described as moderate, Quality is described as dull and constant, and is localized to the right and lower extremity. Patient reports no radiation. Patient started experiencing this hour(s) and it has been constant. No relieving factors improve symptom(s), No exacerbating factors reported . Patient notes other (Redness); denies fever/chills. Patient did receive the following treatments prior to arrival, other (Tylenol) Related Data Home Medications Medication Instructions Recorded Confirmed cephalexin 500 mg PO TID 7 Days #21 cap 01/05/19 Previous Rx's Medication Instructions Recorded cephalexin 500 mg PO TID 7 Days #21 cap 01/05/19 Allergies Allergy/AdvReac Type Severity Reaction Status Date / Time No Known Allergies Allergy Verified 01/05/19 11:00 General Stated Complaint: Cellulitis MIGUEL: 3 Review of Systems Review of Systems Narrative: No fever or chills. Was stepped on. 6 systems reviewed and otherwise negative [facility] Medical History Atopic dermatitis (Chronic) Biliary dyskinesia (Acute) Helicobacter pylori (H. pylori) infection (Resolved) Tobacco use disorder (Chronic) Trochanteric bursitis, left hip (Chronic) Surgical History section (Resolved ~1994) x1 Dilation and curettage (Resolved 02/11/04) laparoscopy w/ bx Hernia Repair, Ventral (Resolved 10/23/14) Hysterectomy, Laproscopic (Resolved 04/22/04) BSO Social History Smoking/Tobacco Use Status: Current every day Tobacco Type: cigarettes Years smoked: 25 Alcohol Intake: former Drug use: Occasionally Substance use type: marijuana Details: marijuana yesterday alcholol months ago smoked cigarettes this morning 0900 last time. Household members: children Number of Children: 2 current occupation: [employer] Pets and animals: No Sexually active: No Current gender identity: female What type of physical activity do you participate in: walking Frequency: 5-6 times per week Do you feel safe at home: Yes Additional Social history: not in a relationship Exam Narrative Exam Narrative: GEN: awake, alert, oriented 3. Pleasant, well groomed, interactive. HEAD: Normocephalic, atraumatic ENT: Mucous membranes moist, oropharynx unremarkable, External ear exam unremarkable EXT: Full ROM, right fifth toe erythema, medial discrete ulceration of skin, dorsum of the foot is erythematous and tender. Neuro: Grossly normal neurologic exam, conversant, interactive. Psych: Speech fluent, thoughts congruent, affect normal Course Vital Signs Vital signs: Vital Signs Temperature 36.7 C 01/05/19 10:57 Pulse 90 01/05/19 10:57 Respiratory Rate 16 01/05/19 10:57 Blood Pressure 151/85 H 01/05/19 10:57 Pulse Oximetry 97 01/05/19 10:57 Temperature 36.7 C 01/05/19 10:57 Temperature Source Skin 01/05/19 10:57 Pulse 90 01/05/19 10:57 Respiratory Rate 16 01/05/19 10:57 Respiratory Effort 01/05/19 11:06 Blood Pressure 151/85 H 01/05/19 10:57 Pulse Oximetry 97 01/05/19 10:57 Oxygen Delivery Method Room Air 01/05/19 10:57 Oxygen Flow Rate 0 01/05/19 10:57 Pain Level 7 01/05/19 10:57
[2019-01-05] MEDS: Cephalexin 500 MG CAP PO (11:24)
[2019-01-05] MEDS: Ibuprofen 800 MG TAB PO (11:24)
--- NOTE | 2019-01-05 11:48 | DI.RAD_ITS ---
EXAM: XR TOE RT FIFTH INDICATION: pain after stepped on. COMPARISON: LEFT GREAT TOE from 02/09/2015 TECHNIQUE: 2D digital imaging was performed. FINDINGS: Three views were obtained. No fracture is seen. IMPRESSION:
== END 2019-01-05 12:21 | disposition home or self-care (01) ==
PROVIDERS: Emergency Provider Emergency Medicine; PCP Nurse Practitioner Family
DX: L03.031 Cellulitis of right toe (principal)
CPT/HCPCS: 99283; 73660

== ENCOUNTER 2019-01-08 15:15 | Outpatient (REF) | payer OTHER, SELFPAY ==
[2019-01-08 16:26] LABS: Abs Immature Grans 0.02 k/cumm (0.0-0.09); Absolute Basophil Count 0.02 k/cumm (0.0-0.2); Absolute Eosinophil Count 0.28 k/cumm (0.0-0.7); Absolute Lymphocyte Count 2.95 k/cumm (1.2-3.4); Absolute Monocyte Count 0.93 k/cumm (0.11-0.7); Absolute Neutrophil Count 5.17 k/cumm (1.2-6.7); Basophils % 0.2; HCT 40.7 % (36.0-46.0); HGB 14.2 g/dL (12.0-15.5); Immature Grans % 0.2; Lymphocytes % 31.5; Mean Corp. HGB Concentration 34.9 g/dL (32.0-36.0); Mean Corpuscular Hemoglobin 31.1 pg (27.0-33.0); Mean Corpuscular Volume 89.1 fL (80-95); Mean Platelet Volume 10.4 fL (8.0-11.0); Monocytes % 9.9; Neutrophils % 55.2; Platelet Count 268 x1000/uL (130-400); RBC 4.57 m/cumm (4.00-5.20); RBC Distribution Width 12.5 % (11.7-14.6); White Blood Cell Count 9.37 k/cumm (4.4-10.8)
== END 2019-01-08 15:35 ==
LOC: LBN 15:15
PROVIDERS: PCP Nurse Practitioner Family; Visit Provider Nurse Practitioner Adult Health
DX: L03.115 Cellulitis of right lower limb (principal)
CPT/HCPCS: 85025

== ENCOUNTER 2019-02-12 15:28 | Outpatient (REF) | payer OTHER, SELFPAY | END 2019-02-12 15:48 | LOC: LBN 15:28 | PROVIDERS: PCP Nurse Practitioner Family; Visit Provider Surgery | DX: L02.611 Cutaneous abscess of right foot (principal); L03.031 Cellulitis of right toe | CPT/HCPCS: 87077; 87070; 87186; 87205 ==

== ENCOUNTER 2019-05-11 17:17 | Emergency (ER) | payer OTHER, SELFPAY ==
[2019-05-11 17:27] VITALS: PULSE 83; RESP 18; TEMP 36.6; O2SAT 96
--- NOTE | 2019-05-11 17:44 | W.ED.GENAD ---
Discharge Plan Disposition Patient Disposition: HOME Condition: Stable Discharge Details Chief Complaint: Orthopedic Clinical Impression: Hip pain, right Primary Care Provider: Harriet Sousa ED Provider: Yaya Mendoza Home Meds and New Rx's Prescriptions: New diazepam [Valium] 5 mg tablet 5 mg PO TID PRN (Reason: muscle spasm) Qty: 20 RF: 0 Continued mupirocin 2 % ointment 1 applic TP BID Qty: 15 RF: 0 acetaminophen [Tylenol Arthritis Pain] 650 mg tablet extended release 650 mg PO Q12H RF: 0 Discharge Instructions Additional Instructions: Follow up with Dr. Jimenez within 1-2 weeks you can take 1000mg tylenol and 600mg ibuprofen every 6 hours for pain as needed if you feel significant increase in pain, fevers, or redness that is spreading return to the emergency department Medical Decision Making 43 yo female with hx of left hip bursitis comes in with pain in the right hip that she states feels similar to this. Denies falls or other trauma. No fevers, chills, rashes, ivdu per patient. HAs no warmth or erythema of the right hip with intact distal sesation, no saddle anesthesia, no low back pain and no urinary retention. Has pain over greater trocanter and lateral leg, could be bursitis vs muscle spasm, will tx with toradol, steroids and muscle relaxer and reassess. Given lack of trauma do not feel xray indicated and is having full rom. No infectious symptoms or signs so doubt septic joint. pt feeling much better and requesting d/c. Will d/c on valium and advised to f/u with Dr. Jimenez, return precautions given Differential Diagnosis Differential Diagnosis: muscle spasm, bursitis, contusion HPI General Mode of arrival: ambulatory. Date/Time Provider Initiated Documentation: 05/11/19 17:28. Limitations to Documentation: no limitations. Information obtained by: patient. History of Present Illness 43 year old F presents to the emergency department with the chief complaint of right hip discomfort, described as moderate, Quality is described as aching, Patient reports no radiation. Patient started experiencing this day(s) (3) and it has been constant. No relieving factors improve symptom(s), No exacerbating factors reported . Patient notes no other symptoms.. Patient did receive the following treatments prior to arrival, none Related Data Home Medications Medication Instructions Recorded Confirmed mupirocin 2 % topical ointment 1 applic TP BID #15 gm 01/11/19 02/26/19 acetaminophen 650 mg 650 mg PO Q12H 02/15/19 05/11/19 tablet,extended release diazepam [Valium] 5 mg PO TID PRN #20 tab 05/11/19 Previous Rx's Medication Instructions Recorded mupirocin 2 % topical ointment 1 applic TP BID #15 gm 01/11/19 diazepam [Valium] 5 mg PO TID PRN #20 tab 05/11/19 Allergies Allergy/AdvReac Type Severity Reaction Status Date / Time No Known Allergies Allergy Verified 05/11/19 17:29 General Stated Complaint: Orthopedic MIGUEL: 4 Review of Systems All systems reviewed & are unremarkable except as noted in HPI and below Constitutional Constitutional: Denies chills, Denies fever(s) and Denies weakness Cardiovascular Cardiovascular: Denies chest pain and Denies dyspnea Respiratory Respiratory: Denies cough and Denies dyspnea Gastrointestinal Gastrointestinal: Denies abdominal pain, Denies nausea and Denies vomiting Musculoskeletal Musculoskeletal: Denies joint swelling Integumentary/Breasts Skin/Breast: Denies rash Neurologic Neurologic: Denies weakness [facility] Social History Smoking/Tobacco Use Status: Current every day Tobacco Type: cigarettes Years smoked: 25 Alcohol Intake: former Drug use: Occasionally Substance use type: marijuana Details: marijuana yesterday alcholol months ago smoked cigarettes this morning 0900 last time. Household members: children Number of Children: 2 current occupation: [employer] Pets and animals: No Sexually active: No Current gender identity: female What type of physical activity do you participate in: walking Frequency: 5-6 times per week Do you feel safe at home: Yes Additional Social history: not in a relationship Exam Const General: no acute distress Orientation: alert HENMT Head: normal to inspection Ears: external ears normal General nose exam: external nose normal Mouth: moist mucous membranes Eyes General: appearance normal, both eyes and all related structures Neck Neck: normal visual inspection Resp Effort & Inspection: normal respiratory effort and able to speak in complete sentences Cardio Rate: regular rate Skin General skin exam: no rashes or lesions noted Neuro General: alert and oriented x3 Extrem General: normal to inspection Psych Mental Status: mental status grossly normal Course Vital Signs Vital signs: Vital Signs Temperature 36.6 C 05/11/19 17:27 Pulse 83 05/11/19 17:27 Respiratory Rate 18 05/11/19 17:27 Pulse Oximetry 96 05/11/19 17:27 Temperature 36.6 C 05/11/19 17:27 Temperature Source Skin 05/11/19 17:27 Pulse 83 05/11/19 17:27 Respiratory Rate 18 05/11/19 17:27 Respiratory Effort 05/11/19 17:30 Blood Pressure Position Sitting 05/11/19 17:27 Pulse Oximetry 96 05/11/19 17:27 Oxygen Delivery Method Room Air 05/11/19 17:27 Oxygen Flow Rate 0 05/11/19 17:27 Pain Level 8 05/11/19 17:27
[2019-05-11] MEDS: diazePAM 5 MG TAB PO (18:01)
[2019-05-11] MEDS: Ketorolac 30 MG/ML VIAL IM (18:01)
== END 2019-05-11 18:50 | disposition home or self-care (01) ==
PROVIDERS: Emergency Provider Emergency Medicine; PCP Nurse Practitioner Family
DX: M25.551 Pain in right hip (principal)
CPT/HCPCS: 96372; 99284; J1885

== ENCOUNTER 2020-12-22 14:30 | Outpatient (REF) | payer MEDICAID, SELFPAY ==
[2020-12-23 01:59] LABS: COVID-19 RT-PCR UVMMC Result Negative (Negative)
== END 2020-12-22 14:31 | disposition home or self-care (01) ==
LOC: LBN 14:30
PROVIDERS: PCP Nurse Practitioner Family; Visit Provider Physician Assistant
DX: Z20.822 Contact with and (suspected) exposure to COVID-19 (principal)
CPT/HCPCS: U0003

== ENCOUNTER 2020-12-29 11:46 | Emergency (ER) | payer MEDICAID, SELFPAY ==
[2020-12-29 12:20] VITALS: BP 138/82; PULSE 92; RESP 18; TEMP 37.2; O2SAT 95
--- NOTE | 2020-12-29 12:45 | RT.EKG_ITS ---
APPROVED REPORT Exam: Resting ECG Reason for Exam: chest pain Patient Location: E HR:73 bpm ECG Measurements Heart Rate 73 AXIS [place] 162 P 64 QRSd 95 QRS 61 QT 383 T 46 QTc 421 Conclusion Sinus rhythm...normal P axis, V-rate 60- 99 sinus rhythm at 73, normal axis, apparent artifact present v3 and V6, no STEMI, nondiagnostic EKG
--- NOTE | 2020-12-29 12:57 | ED.GENADUL_ITS ---
Discharge Plan Disposition Patient Disposition: HOME Condition: Stable Discharge Details Clinical Impression: Pneumonia Primary Care Provider: Harriet Sousa ED Provider: Chiara Wells Home Meds and New Rx's Prescriptions: New levofloxacin 750 mg tablet 750 mg PO DAILY Qty: 4 RF: 0 Discontinued amoxicillin 500 mg capsule 1,000 mg PO TID Qty: 42 RF: 0 No Action acetaminophen [Tylenol Arthritis Pain] 650 mg tablet extended release 650 mg PO Q12H RF: 0 albuterol sulfate [Proventil HFA] 90 mcg/actuation HFA aerosol inhaler 2 puff inhalation Q6H PRN (Reason: shortness of breath or wheezing) Qty: 8.5 RF: 0 benzonatate [Tessalon Perles] 100 mg capsule 100 mg PO TID PRN (Reason: cough) Qty: 14 RF: 0 Discharge Instructions Instructions: Pneumonia (ED) Additional Instructions: You were offered admission today and declined. You may return to emergency department anytime if you change your mind. Please return immediately to the emergency department if you develop any new or worsening symptoms, if your condition does not improve as expected, or if you become otherwise concerned. It is extremely important that you call soon as possible to make an appointment to be seen in follow-up for this visit by your primary care doctor. Please stop taking your amoxicillin and azithromycin and begin taking levofloxacin. Your first dose was given to you today in the emergency department, please begin taking one tab daily tomorrow. Referrals: Harriet Sousa NP [Primary Care Provider] - Discharge Data Discharge Date/Time-TO BE ENTERED AT DEPARTURE: 12/29/20 17:05 Medical Decision Making Sophie Beck is a 45 y/o woman who presented to the emergency department with persistent cough for 2.5 weeks after starting amoxicillin and azithromycin 12/22/20. On exam Pt is coughing, appears fatgiued, acutely non-toxic. No respiratory distress. No MINA or posterior calf TTP. Concern for COVID, bacterial PNA, pulmonary embolism, dehydration, other. Concern for possible early sepsis. Exam/hx at this time not c/w acute coronary syndrome, meningitis, acute emergent intra-abdominal pathology. EKG obtained, shows sinus rhythm. Plan for IV placement, IV fluid hydration, screening labs, CT chest, COVID swab, IV toradol. Will monitor and reassess. CT shows left lingular and RM lung infiltrate. Concern for bacterial PNA. Given Pt has been on azithromycin/amoxicillin with worsening symptoms, I discussed possible hospital observation with Pt for IV abx. Pt states that she feels well enough for discharge and prefers to go home with PO abx. Plan for levaquin Rx. I had a lengthy discussion with Patient regarding return to emergency department precautions, home care, and importance of outpatient follow-up. Pt verbalizes understanding of the plan and is amenable. Patient discharged to home with clear plan for outpatient follow-up. All questions were answered. Disposition decision was made weighing the risks and benefits of hospitalization versus outpatient treatment, the risk for further decompensation, and the patient's wishes. Medical Records Medical records reviewed: Yes I reviewed the patient's medical records. Imaging Data Radiologic Study: Attestation: I personally reviewed and interpreted this imaging study as follows: Radiologist's impression: EXAM: CT CHEST PE CTA CLINICAL HISTORY: cough, SOB. TECHNIQUE: Imaging Protocol: CT angiography of the chest was performed using pulmonary embolus protocol. Multi planar reconstructions were performed. CONTRAST MATERIAL: Intravenous: Omnipaque 350 Contrast volume: 100 cc COMPARISON: CT CT ABDOMEN PELVIS W from 06/11/2018 CR XR CHEST 2V PA LATERAL from 06/11/2018 CR XR CHEST 2V PA LATERAL from 06/11/2018 FINDINGS: CHEST: PULMONARY ARTERIES: There are no intraluminal filling defects to suggest acute pulmonary emboli. LUNGS: Bilateral mosaic pattern consistent with element of air trapping. Mild infiltrates in the medial segment of the right middle lobe and lingular segment of the left lung. Also subpleural increased markings in the anterior basal segment of the right lower lobe and lateral basal segment of the left lower lobe. No ominous pulmonary nodules. No pleural effusions. No focal findings in the trachea and mainstem bronchi. MEDIASTINUM: There is no hilar nor mediastinal adenopathy. Visualized thyroid unremarkable. CARDIAC: Heart size is upper normal. There is no pericardial effusion.Caliber of the thoracic aorta is within normal limits. There is no significant shift of the interventricular septum. PARTIALLY VISUALIZED UPPERMOST ABDOMEN: Gallbladder surgically absent. OSSEOUS: No significant osseous lesions.. IMPRESSION: 1. No evidence of acute pulmonary emboli. No evidence of pulmonary infarction.Mild bilateral infiltrates in the right middle lobe medial segment and lingular segment of the left lung. No associated pleural effusions. 2. No intrathoracic adenopathy. Lab Data Lab results reviewed: Yes I reviewed the patient's lab results. Labs: 12/29/20 13:35 Blood Blood Culture - Final NO GROWTH 120 HOURS 12/29/20 13:09 Blood Blood Culture - Final NO GROWTH 120 HOURS Laboratory Tests Range/Units 12/29/20 12/29/20 12/29/20 13:09 13:09 13:09 WBC (4.4-10.8) 10^3/uL 12.96 H RBC (3.93-5.22) 10^6/uL 5.06 Hgb (11.2-15.7) g/dL 15.4 Hct (36.0-46.0) % 45.1 MCV (80-95) fL 89.1 MCH (27.0-33.0) pg 30.4 MCHC (32.0-36.0) % 34.1 RDW (11.7-14.6) % 12.1 Plt Count (130-400) 10^3/uL 379 MPV (8.0-11.0) fL 9.0 Immature Gran % 3.2 Neutrophils % 59.6 Lymphocytes % 25.9 Monocytes % 9.3 Eosinophils % 1.5 Basophils % 0.5 Nucleated RBC % % 0 Absolute Neutrophils (1.2-6.7) 10^3/uL 7.72 H Absolute Lymphocytes (1.2-3.4) 10^3/uL 3.36 Absolute Monocytes (0.1-0.8) 10^3/uL 1.21 H Absolute Eosinophils (0.0-0.7) 10^3/uL 0.19 Absolute Basophils (0.0-0.2) 10^3/uL 0.06 VBG Lactate (0.6-1.4) mmol/L Sodium (136-145) mmol/L 141 Potassium (3.5-5.1) mmol/L 3.6 Chloride (98-107) mmol/L 104 Carbon Dioxide (21.0-32.0) mmol/L 28.7 Anion Gap (3-11) mmol/L 8.3 BUN (7-18) mg/dL 8 Creatinine (0.55-1.02) mg/dL 0.7 Estimated GFR/1.73 m2 (mL/min/1.73m2) >= 60.00 Glucose (74-106) mg/dL 95 Calcium (8.5-10.1) mg/dL 8.7 Magnesium (1.8-2.4) mg/dL 2.6 H Total Bilirubin (0.2-1.0) mg/dL 0.3 AST (15-37) U/L 14 L ALT (14-59) U/L 21 Alkaline Phosphatase (46-116) U/L 28 L C-Reactive Protein (0.0-0.3) mg/dL 0.18 Total Protein (6.4-8.2) g/dL 7.3 Albumin (3.4-5.0) g/dL 3.6 Urine Color (Yellow) Urine Clarity (Clear) Urine pH (5-8) Ur Specific [place] (1.005-1.025) Urine Protein (Negative) mg/dL Urine Ketones (Negative) mg/dL Urine Blood (Negative) Urine Nitrite (Negative) Urine Bilirubin (Negative) Urine Urobilinogen (Up TO 0.2) EU/dL Ur Leukocyte Esterase (Negative) Urine RBC (0-2) HPF Urine WBC (0-5) HPF Ur Epithelial Cells (Negative) HPF Urine Crystals (Negative) HPF Urine Bacteria (Negative) HPF Urine Casts (Negative) LPF Urine Mucus (Negative) Urine Other (Negative) Ur Culture Indicated? Urine Glucose (Negative) mg/dL COVID-19 Source SARS-CoV-2 (PCR) (Negative) Range/Units 12/29/20 12/29/20 12/29/20 13:10 13:36 13:45 WBC (4.4-10.8) 10^3/uL RBC (3.93-5.22) 10^6/uL Hgb (11.2-15.7) g/dL Hct (36.0-46.0) % MCV (80-95) fL MCH (27.0-33.0) pg MCHC (32.0-36.0) % RDW (11.7-14.6) % Plt Count (130-400) 10^3/uL MPV (8.0-11.0) fL Immature Gran % Neutrophils % Lymphocytes % Monocytes % Eosinophils % Basophils % Nucleated RBC % % Absolute Neutrophils (1.2-6.7) 10^3/uL Absolute Lymphocytes (1.2-3.4) 10^3/uL Absolute Monocytes (0.1-0.8) 10^3/uL Absolute Eosinophils (0.0-0.7) 10^3/uL Absolute Basophils (0.0-0.2) 10^3/uL VBG Lactate (0.6-1.4) mmol/L 0.6 Sodium (136-145) mmol/L Potassium (3.5-5.1) mmol/L Chloride (98-107) mmol/L Carbon Dioxide (21.0-32.0) mmol/L Anion Gap (3-11) mmol/L BUN (7-18) mg/dL Creatinine (0.55-1.02) mg/dL Estimated GFR/1.73 m2 (mL/min/1.73m2) Glucose (74-106) mg/dL Calcium (8.5-10.1) mg/dL Magnesium (1.8-2.4) mg/dL Total Bilirubin (0.2-1.0) mg/dL AST (15-37) U/L ALT (14-59) U/L Alkaline Phosphatase (46-116) U/L C-Reactive Protein (0.0-0.3) mg/dL Total Protein (6.4-8.2) g/dL Albumin (3.4-5.0) g/dL Urine Color (Yellow) Yellow Urine Clarity (Clear) Clear Urine pH (5-8) 6.0 Ur Specific [place] (1.005-1.025) 1.010 Urine Protein (Negative) mg/dL Negative Urine Ketones (Negative) mg/dL Negative Urine Blood (Negative) Trace-lysed H Urine Nitrite (Negative) Negative Urine Bilirubin (Negative) Negative Urine Urobilinogen (Up TO 0.2) EU/dL 0.2 Ur Leukocyte Esterase (Negative) Negative Urine RBC (0-2) HPF 0-2 Urine WBC (0-5) HPF 0-2 Ur Epithelial Cells (Negative) HPF Moderate Urine Crystals (Negative) HPF Negative Urine Bacteria (Negative) HPF Few Urine Casts (Negative) LPF Negative Urine Mucus (Negative) Negative Urine Other (Negative) Negative Ur Culture Indicated? No Urine Glucose (Negative) mg/dL Negative COVID-19 Source Nasal/Nares SARS-CoV-2 (PCR) (Negative) Negative ECG Data Attestation: I personally reviewed and interpreted this ECG (s) as follows: Interpretation: EKG shows sinus rhythm at 73, normal axis, apparent artifact present v3 and V6, no STEMI, nondiagnostic EKG HPI General Mode of arrival: ambulatory . Date/Time Provider Initiated Documentation: 12/29/20 12:17 . Limitations to Documentation: no limitations . Information obtained by: patient, RN notes reviewed and old records reviewed . HPI Narrative: Sophie Beck is a 45 y/o woman with h/o asthma presenting to the emergency department with cough. Pt reports that she has had cough for 2.5 weeks. Saw urgent care 12/22/20was diagnosed with PNA and started on steroids, amoxicillin, azithromycin, and tessalon pearles. Pt reports that symptoms have persisted depsite complicance with meds. She reports pain all over including chest pain, shoulder pain, headache, that she attributes to persistent frequent cough in addition to generalized muscle and joint aches. Pt reports that she came to the ED because cough is severe, particularly at night, and not improving. She reports night sweats but has not measured her temperatures. She reports mild SOB at times, currently no SOB. No vomiting, no numbness, no weakness, no rash. Mild diarrhea. Has been eating and drinking as usual, but has lost her sense of taste. Attributes this to significant nasal congestion. Related Data Home Medications Medication Instructions Recorded Confirmed acetaminophen 650 mg 650 mg PO Q12H 02/15/19 12/30/20 tablet,extended release albuterol sulfate 90 mcg/actuation 2 puff INHALATION Q6H PRN #8.5 g 12/22/20 12/30/20 aerosol inhaler benzonatate 100 mg capsule 100 mg PO TID PRN #14 cap 12/26/20 12/30/20 levofloxacin 750 mg PO DAILY #4 tab 12/29/20 12/30/20 Previous Rx's Medication Instructions Recorded albuterol sulfate 90 mcg/actuation 2 puff INHALATION Q6H PRN #8.5 g 12/22/20 aerosol inhaler benzonatate 100 mg capsule 100 mg PO TID PRN #14 cap 12/26/20 levofloxacin 750 mg PO DAILY #4 tab 12/29/20 Allergies Allergy/AdvReac Type Severity Reaction Status Date / Time No Known Allergies Allergy Verified 12/30/20 15:45 General Stated Complaint: RespSymp MIGUEL: 3 Review of Systems Narrative: Constitutional: denies fevers, reports night sweats Eyes: denies eye pain ENT: denies ear pain, dental pain, sore throat Cardiovascular: Reports chest pain with coughing Respiratory: Reports mild SOB, persistent nonproductive cough GI: denies abdominal pain, vomiting, reports mild diarrhea : denies flank pain MSK: Reports generalized arthralgias, myalgias, denies back pain, neck pain Skin: denies rash Neuro: Reports headaches, denies numbness, weakness PFSH Medical History Atopic dermatitis Biliary dyskinesia Cellulitis of right foot Depression Endometriosis (05/14/15) Helicobacter pylori (H. pylori) infection Tobacco use disorder Trochanteric bursitis, left hip Surgical History section (~1994) x1 Dilation and curettage (02/11/04) laparoscopy w/ bx Hernia Repair, Ventral (10/23/14) Hysterectomy, Laproscopic (04/22/04) BSO Social History Smoking/Tobacco Use Status: Current every day Tobacco Type: cigarettes Years smoked: 25 Smoking risk assessment performed?: Yes Alcohol Intake: current Alcohol Intake frequency: holidays/special occasions only Alcohol type: hard liquor Drug use: Occasionally Substance use type: marijuana Details: marijuana yesterday alcholol months ago smoked cigarettes this morning 0900 last time. Household members: children Number of Children: 2 current occupation: [employer] Pets and animals: No Sexually active: No Current gender identity: female What type of physical activity do you participate in: walking Frequency: 5-6 times per week Do you feel safe at home: Yes Do you feel safe in your relationship?: Yes Additional Social history: not in a relationship Exam Narrative Exam Narrative: Constitutional: [id number], appears fatigued, coughing frequently, pleasant, conversing normally HENT: head atraumatic/normocephalic/normal inspection, mucous membranes moist Eyes: conjunctiva normal, sclera normal, pupils 3mm b/l Neck: no stridor, normal ROM, trachea midline, supple, no meningismus Chest: normal inspection Resp: normal work of breathing, speaking in full sentences Cardio: normal rate, normal rhythm Skin: warm, dry, normal color, no rash Neuro: alert, not altered, grossly non-focal, normal tone Ext: no edema, no posterior calf tenderness to palpation Psych: normal mood, normal affect, normal behavior Course Vital Signs Vital signs: Vital Signs Temperature 37.2 C 12/29/20 12:20 Pulse 92 H 12/29/20 12:20 Respiratory Rate 18 12/29/20 12:20 Blood Pressure 138/82 12/29/20 12:20 Pulse Oximetry 95 12/29/20 12:20 Temperature 37.2 C 12/29/20 12:20 Pulse 92 H 12/29/20 12:20 Respiratory Rate 18 12/29/20 12:20 Respiratory Effort Non-Labored 12/29/20 12:25 Respiratory Depth Normal 12/29/20 12:25 Blood Pressure 138/82 12/29/20 12:20 Blood Pressure Position Sitting 12/29/20 12:20 Pulse Oximetry 95 12/29/20 12:20 Oxygen Delivery Method Room Air 12/29/20 12:20 Oxygen Flow Rate 0 12/29/20 12:20 Pain Level 6 12/29/20 12:20 Lab/Test Results Lab/Test Results: 12/29/20 12:55 Blood Blood Culture - Pending 12/29/20 12:55 Blood Blood Culture - Pending
[2020-12-29] MEDS: Normal Saline 1,000 ML 1000 ML IV (13:21)
[2020-12-29 13:29] LABS: Source Nasal/Nares
[2020-12-29 13:36] LABS: Abs Immature Grans 0.42 10^3/uL (0.0-0.06); Absolute Basophil Count 0.06 10^3/uL (0.0-0.2); Absolute Eosinophil Count 0.19 10^3/uL (0.0-0.7); Absolute Lymphocyte Count 3.36 10^3/uL (1.2-3.4); Absolute Monocyte Count 1.21 10^3/uL (0.1-0.8); Absolute Neutrophil Count 7.72 10^3/uL (1.2-6.7); Basophils % 0.5; Eosinophils % 1.5; HCT 45.1 % (36.0-46.0); HGB 15.4 g/dL (11.2-15.7); Immature Grans % 3.2; Lymphocytes % 25.9; MCH 30.4 pg (27.0-33.0); MCHC 34.1 % (32.0-36.0); MCV 89.1 fL (80-95); Monocytes % 9.3; Neutrophils % 59.6; Nucleated RBC 0 %; Platelet Count 379 10^3/uL (130-400); RBC 5.06 10^6/uL (3.93-5.22); RDW 12.1 % (11.7-14.6); RDW-SD 39.5 fL; WBC 12.96 10^3/uL (4.4-10.8)
[2020-12-29 13:44] LABS: Magnesium 2.6 mg/dL (1.8-2.4)
[2020-12-29 13:46] LABS: Lactate 0.6 mmol/L (0.6-1.4)
[2020-12-29 13:48] LABS: ALT 21 U/L (14-59); AST 14 U/L (15-37); Albumin 3.6 g/dL (3.4-5.0); Alkaline Phosphatase 28 U/L (46-116); Anion Gap 8.3 mmol/L (3-11); BUN 8 mg/dL (7-18); Bilirubin, Total 0.3 mg/dL (0.2-1.0); C-Reactive Protein 0.18 mg/dL (0.0-0.3); CO2 28.7 mmol/L (21.0-32.0); CREATININE 0.7 mg/dL (0.55-1.02); Calcium 8.7 mg/dL (8.5-10.1); Chloride 104 mmol/L (98-107); Glucose 95 mg/dL (74-106); Potassium 3.6 mmol/L (3.5-5.1); Sodium 141 mmol/L (136-145); Total Protein 7.3 g/dL (6.4-8.2)
[2020-12-29 14:05] LABS: Bilirubin Negative (Negative); Blood Trace-lysed (Negative); Clarity Clear (Clear); Glucose Negative (Negative); Ketones Negative (Negative); Leukocyte Esterase Negative (Negative); Nitrite Negative (Negative); Urobilinogen 0.2 EU/dL (Up TO 0.2)
[2020-12-29 14:19] LABS: Epithelial Cells Moderate HPF (Negative); Other Cells Negative (Negative); RBC 0-2 HPF (0-2); WBC 0-2 HPF (0-5)
[2020-12-29 14:20] LABS: COVID-19 PCR Negative (Negative)
[2020-12-29 14:20] LABS: Bacteria Few HPF (Negative); C & S Indicated? No; Casts Negative LPF (Negative); Crystals Negative HPF (Negative); Mucus Negative (Negative)
--- NOTE | 2020-12-29 14:45 | DI.CT_ITS ---
Exam(s) CT CHEST PE CTA EXAM: CT CHEST PE CTA CLINICAL HISTORY: cough, SOB. TECHNIQUE: Imaging Protocol: CT angiography of the chest was performed using pulmonary embolus garrick col. Multi planar reconstructions were performed. CONTRAST MATERIAL: Intravenous: Omnipaque 350 Contrast volume: 100 cc COMPARISON: CT CT ABDOMEN PELVIS W from 06/11/2018 CR XR CHEST 2V PA LATERAL from 06/11/2018 CR XR CHEST 2V PA LATERAL from 06/11/2018 FINDINGS: CHEST: PULMONARY ARTERIES: There are no intraluminal filling defects to suggest acute pulmonary emboli. LUNGS: Bilateral mosaic pattern consistent with element of air trapping. Mild infiltrates in the med ial segment of the right middle lobe and lingular segment of the left lung. Also subpleural increase d markings in the anterior basal segment of the right lower lobe and lateral basal segment of the lef t lower lobe. No ominous pulmonary nodules. No pleural effusions. No focal findings in the trachea and mainstem bronchi. MEDIASTINUM: There is no hilar nor mediastinal adenopathy. Visualized thyroid unremarkable. CARDIAC: Heart size is upper normal. There is no pericardial effusion.Caliber of the thoracic aorta is within normal limits. There is no significant shift of the interventricular septum. PARTIALLY VISUALIZED UPPERMOST ABDOMEN: Gallbladder surgically absent. OSSEOUS: No significant osseous lesions.. IMPRESSION: 1. No evidence of acute pulmonary emboli. No evidence of pulmonary infarction.Mild bilateral infiltr ates in the right middle lobe medial segment and lingular segment of the left lung. No associated pl eural effusions. 2. No intrathoracic adenopathy. Result called to ER physician sign rib RADIATION DOSE DELIVERED: 290.67mGy.cm Total DLP DATA REPOSITORY: All CT scans at this facility are submitted to the National Radiology Data Registry (NRDR) Dose Index Registry (DIR) with the [employer] (A[employer]). RADIATION OPTIMIZATION: All CT scans at this facility use at least one of these dose optimization te chniques: automated exposure control; mA and/or kV adjustment per patient size (includes targeted exa ms where dose is matched to clinical indication); or iterative reconstruction.
[2020-12-29] MEDS: Ketorolac 15 MG/ML VIAL IVP (15:06)
[2020-12-29 15:07] VITALS: BP 112/75; PULSE 68; RESP 18; O2SAT 94
[2020-12-29] MEDS: Omnipaque 350 MG/ML 100 ML BTL 97 ML IJ (15:29)
[2020-12-29 16:49] VITALS: BP 117/76; PULSE 78; RESP 92
[2020-12-29] MEDS: levoFLOXacin 500 MG, levoFLOXacin 250 MG 750 MG PO (16:49)
== END 2020-12-29 17:05 | disposition home or self-care (01) ==
PROVIDERS: Emergency Provider Student in an Organized Health Care Education/Training Program; PCP Nurse Practitioner Family
DX: J18.8 Other pneumonia, unspecified organism (principal); R05 Cough; R06.02 Shortness of breath; F17.210 Nicotine dependence, cigarettes, uncomplicated; Z20.822 Contact with and (suspected) exposure to COVID-19; Z03.818 Encounter for observation for suspected exposure to other biological agents ruled out
CPT/HCPCS: 36415; 71275; 80053; 87040; 87635; 93005; 96361; 96374; 99285; 81003; 81015; 83605; 83735; 85025; 86140; 93010; J1885; J3490

== ENCOUNTER 2020-12-30 15:05 | Emergency (ER) | payer MEDICAID, SELFPAY ==
[2020-12-30 15:40] VITALS: BP 144/98; PULSE 92; RESP 20; TEMP 36.8; O2SAT 94
--- NOTE | 2020-12-30 16:08 | W.ED.GENAD ---
Discharge Plan Disposition Patient Disposition: HOME Condition: Stable Discharge Details Clinical Impression: Pneumonia Primary Care Provider: Harriet Sousa ED Provider: Brinda Pelletier Home Meds and New Rx's Prescriptions: New codeine-guaifenesin [Maxi-Tuss AC] 10-100 mg/5 mL liquid 5 ml PO .q hs PRN (Reason: cough) 5 Days Qty: 118 RF: 0 No Action acetaminophen [Tylenol Arthritis Pain] 650 mg tablet extended release 650 mg PO Q12H RF: 0 albuterol sulfate [Proventil HFA] 90 mcg/actuation HFA aerosol inhaler 2 puff inhalation Q6H PRN (Reason: shortness of breath or wheezing) Qty: 8.5 RF: 0 benzonatate [Tessalon Perles] 100 mg capsule 100 mg PO TID PRN (Reason: cough) Qty: 14 RF: 0 levofloxacin 750 mg tablet 750 mg PO DAILY Qty: 4 RF: 0 Discharge Instructions Instructions: Pneumonia (ED) Additional Instructions: Please continue taking the Levaquin or levofloxacin as previously prescribed. Continue with the inhaler every 4-6 hours as needed for wheezing and shortness of breath. Increase fluids. Please take the cough medicine as directed. It may cause you to be sleepy do not drive or operate heavy machinery while on the medication. Please take Tylenol or Ibuprofen with food every 4-6 hours as needed for pain and swelling. Return to the ER for any vomiting, dizziness, lightheadedness feeling like he cannot breathe if your fingers turn blue lips turn blue or any concerns. Stand Alone Forms: Work Release Referrals: Harriet Sousa NP [Primary Care Provider] - 2 weeks Discharge Data Discharge Date/Time-TO BE ENTERED AT DEPARTURE: 12/30/20 18:56 Medical Decision Making 45-year-old female presents the ER chief shortness of breath, headache. Patient was seen here emergency department yesterday for chest CT and blood cultures with a negative Covid test. She was offered admission for IV antibiotics for pneumonia which she refused time. She is back to 2 not feeling better. She was placed on p.o. Levaquin yesterday has not had any antibiotic today. She is a daily smoker. She does endorse marijuana. Denies any drugs other drugs. Other past medical history includes H. pylori, atopic dermatitis, cellulitis, hip pain. She reports taking albuterol neb prior to arrival Tylenol. She does have some rhonchi to her right lower lobe. Records reviewed from yesterday. Blood cultures show no growth after 24 hours. Will draw basic labs CBC CMP at this time. She was Covid negative yesterday. 750 mg of levofloxacin IV piggyback ordered. 1633: Hospitalist paged. After speaking with hospitalist patient at this time does not necessarily meet admission criteria. Patient is tolerating p.o. without difficulty. Vital signs are stable. Labs are largely within normal limits. I did discuss home care with patient she is fine with not being admitted at this time. Patient has had 2 - blood cultures as noted above. We will give patient some cough medicine and instruct to continue the Levaquin at home as directed albuterol inhaler and follow-up in the next 7 to 10 days. Differential diagnosis includes viral illness also on top of the pneumonia. Patient is alert and oriented hemodynamically stable upon discharge. Medical Records Medical records reviewed: Yes I reviewed the patient's medical records. Medical records narrative: Patient Name: Sophie Beck #: [id number]: ER Ordering Provider: Chiara Wells M.D. : REG ER Primary Care Provider: Harriet Sousa NPDate of Exam: 12/29/20Sex: F : 1975Age: 45 Exam(s) a CT:CT chest PE CTA Exam(s) CT CHEST PE CTA EXAM: CT CHEST PE CTA CLINICAL HISTORY: cough, SOB. TECHNIQUE: Imaging Protocol: CT angiography of the chest was performed using pulmonary embolus protocol. Multi planar reconstructions were performed. CONTRAST MATERIAL: Intravenous: Omnipaque 350 Contrast volume: 100 cc COMPARISON: CT CT ABDOMEN PELVIS W from 06/11/2018 CR XR CHEST 2V PA LATERAL from 06/11/2018 CR XR CHEST 2V PA LATERAL from 06/11/2018 FINDINGS: CHEST: PULMONARY ARTERIES: There are no intraluminal filling defects to suggest acute pulmonary emboli. LUNGS: Bilateral mosaic pattern consistent with element of air trapping. Mild infiltrates in the medial segment of the right middle lobe and lingular segment of the left lung. Also subpleural increased markings in the anterior basal segment of the right lower lobe and lateral basal segment of the left lower lobe. No ominous pulmonary nodules. No pleural effusions. No focal findings in the trachea and mainstem bronchi. MEDIASTINUM: There is no hilar nor mediastinal adenopathy. Visualized thyroid unremarkable. CARDIAC: Heart size is upper normal. There is no pericardial effusion.Caliber of the thoracic aorta is within normal limits. There is no significant shift of the interventricular septum. PARTIALLY VISUALIZED UPPERMOST ABDOMEN: Gallbladder surgically absent. OSSEOUS: No significant osseous lesions.. IMPRESSION: 1. No evidence of acute pulmonary emboli. No evidence of pulmonary infarction.Mild bilateral infiltrates in the right middle lobe medial segment and lingular segment of the left lung. No associated pleural effusions. 2. No intrathoracic adenopathy. HPI General Mode of arrival: ambulatory. Date/Time Provider Initiated Documentation: 12/30/20 15:59. Limitations to Documentation: no limitations. Information obtained by: patient, RN notes reviewed and old records reviewed. HPI Narrative: 45-year-old female presents the ER chief shortness of breath, headache. Patient was seen here emergency department yesterday for chest CT and blood cultures with a negative Covid test. She was offered admission for IV antibiotics for pneumonia which she refused time. She is back to 2 not feeling better. She was placed on p.o. Levaquin yesterday has not had any antibiotic today. She is a daily smoker. She does endorse marijuana. Denies any drugs other drugs. Other past medical history includes H. pylori, atopic dermatitis, cellulitis, hip pain. She reports taking albuterol neb prior to arrival Tylenol. She does have some rhonchi to her right lower lobe. Related Data Home Medications Medication Instructions Recorded Confirmed acetaminophen 650 mg 650 mg PO Q12H 02/15/19 12/30/20 tablet,extended release albuterol sulfate 90 mcg/actuation 2 puff INHALATION Q6H PRN #8.5 g 12/22/20 12/30/20 aerosol inhaler benzonatate 100 mg capsule 100 mg PO TID PRN #14 cap 12/26/20 12/30/20 levofloxacin 750 mg PO DAILY #4 tab 12/29/20 12/30/20 codeine-guaifenesin [Maxi-Tuss AC] 5 ml PO .q hs PRN 5 Days #118 ml 12/30/20 Previous Rx's Medication Instructions Recorded albuterol sulfate 90 mcg/actuation 2 puff INHALATION Q6H PRN #8.5 g 12/22/20 aerosol inhaler benzonatate 100 mg capsule 100 mg PO TID PRN #14 cap 12/26/20 levofloxacin 750 mg PO DAILY #4 tab 12/29/20 codeine-guaifenesin [Maxi-Tuss AC] 5 ml PO .q hs PRN 5 Days #118 ml 12/30/20 Allergies Allergy/AdvReac Type Severity Reaction Status Date / Time No Known Allergies Allergy Verified 12/30/20 15:45 General Stated Complaint: RespSymp MIGUEL: 3 Review of Systems All systems reviewed & are unremarkable except as noted in HPI and below Constitutional Constitutional: Reports headache(s) and Reports lethargy ENT Ears, Nose, Mouth, and Throat: Reports headache(s) Cardiovascular Cardiovascular: Reports dyspnea Respiratory Respiratory: Reports as per HPI, Reports chest congestion, Reports cough and Reports dyspnea Gastrointestinal Gastrointestinal: Denies diarrhea, Denies nausea and Denies vomiting Neurologic Neurologic: Reports headache(s) [facility] Medical History (Updated 12/30/20 @ 18:17 by Brinda Pelletier) Atopic dermatitis Biliary dyskinesia Cellulitis of right foot Depression Endometriosis (05/14/15) Helicobacter pylori (H. pylori) infection Tobacco use disorder Trochanteric bursitis, left hip Surgical History section (~1994) x1 Dilation and curettage (02/11/04) laparoscopy w/ bx Hernia Repair, Ventral (10/23/14) Hysterectomy, Laproscopic (04/22/04) BSO Social History Smoking/Tobacco Use Status: Current every day Tobacco Type: cigarettes Years smoked: 25 Smoking risk assessment performed?: Yes Alcohol Intake: current Alcohol Intake frequency: holidays/special occasions only Alcohol type: hard liquor Drug use: Occasionally Substance use type: marijuana Details: marijuana yesterday alcholol months ago smoked cigarettes this morning 0900 last time. Household members: children Number of Children: 2 current occupation: [employer] Pets and animals: No Sexually active: No Current gender identity: female What type of physical activity do you participate in: walking Frequency: 5-6 times per week Do you feel safe at home: Yes Do you feel safe in your relationship?: Yes Additional Social history: not in a relationship Exam Narrative Exam Narrative: Constitutional: Alert and oriented x3. Appears stated age. Normal body habitus. Head: Normocephalic, no trauma. Eyes: Pupils PERRLA, Red reflex noted, EOM's intact. Eyelids symmetrical without lesions, discharge, or swelling. ENT: Bilateral TM's WNL, External ear normal to inspection, no mastoid TTP, swelling, or erythema, Nasal turbinates WNL, no nasal discharge. Normal dentition, Posterior pharynx WNL, no exudate. Chest: RRR, Normal S1, S2, distal pulses intact. Resp: Rhonchi right lower lobe auscultated. Remainder of lungs clear throughout Musculoskeletal: Normal gait, 5/5 strength to all four extremities. Skin: No suspicious rashes or lesions. Capillary refill less than 2 sec. Neurologic: Cranial nerves II-XII intact. Alert and oriented x 3. Hematologic/Lymphatic: No ecchymosis, no lymphadenopathy. Course Vital Signs Vital signs: Vital Signs Temperature 36.8 C 12/30/20 15:40 Pulse 92 H 12/30/20 15:40 Respiratory Rate 20 12/30/20 15:40 Blood Pressure 144/98 H 12/30/20 15:40 Pulse Oximetry 94 12/30/20 15:40 Temperature 36.8 C 12/30/20 15:40 Temperature Source Oral 12/30/20 15:40 Pulse 92 H 12/30/20 15:40 Respiratory Rate 20 12/30/20 15:40 Respiratory Effort 12/30/20 15:44 Blood Pressure 144/98 H 12/30/20 15:40 Blood Pressure Position Sitting 12/30/20 15:40 Pulse Oximetry 94 12/30/20 15:40 Oxygen Delivery Method Room Air 12/30/20 15:40 Oxygen Flow Rate 0 12/30/20 15:40 Pain Level 6 12/30/20 15:40
[2020-12-30 16:23] LABS: Abs Immature Grans 0.24 10^3/uL (0.0-0.06); Absolute Basophil Count 0.04 10^3/uL (0.0-0.2); Absolute Eosinophil Count 0.16 10^3/uL (0.0-0.7); Absolute Lymphocyte Count 3.14 10^3/uL (1.2-3.4); Absolute Neutrophil Count 7.86 10^3/uL (1.2-6.7); Basophils % 0.3; Eosinophils % 1.3; HCT 40.7 % (36.0-46.0); Immature Grans % 1.9; Lymphocytes % 25.1; MCHC 34.4 % (32.0-36.0); MCV 87.2 fL (80-95); Monocytes % 8.6; Neutrophils % 62.8; Nucleated RBC 0 %; Platelet Count 340 10^3/uL (130-400); RBC 4.67 10^6/uL (3.93-5.22); RDW-SD 38.8 fL; WBC 12.51 10^3/uL (4.4-10.8)
[2020-12-30 16:24] LABS: Absolute Monocyte Count 1.08 10^3/uL (0.1-0.8)
[2020-12-30] MEDS: levoFLOXacin 750 MG/150 ML BAG 100 MG IVPB (16:32)
[2020-12-30] MEDS: Normal Saline Flush 10 ML SYR IVP (16:33)
[2020-12-30 16:36] LABS: ALT 22 U/L (14-59); AST 16 U/L (15-37); Albumin 3.4 g/dL (3.4-5.0); Alkaline Phosphatase 24 U/L (46-116); Anion Gap 7.4 mmol/L (3-11); BUN 12 mg/dL (7-18); Bilirubin, Total 0.2 mg/dL (0.2-1.0); CO2 28.6 mmol/L (21.0-32.0); CREATININE 0.8 mg/dL (0.55-1.02); Calcium 8.3 mg/dL (8.5-10.1); Chloride 105 mmol/L (98-107); Glucose 100 mg/dL (74-106); Potassium 3.8 mmol/L (3.5-5.1); Sodium 141 mmol/L (136-145); Total Protein 6.7 g/dL (6.4-8.2)
[2020-12-30] MEDS: guaiFENesin/CODEINE PHOSPHATE 10 ML CUP 5 ML PO (16:59)
[2020-12-30] MEDS: Nicotine 21 MG/24 HR PATCH TD (17:07)
== END 2020-12-30 18:56 | disposition home or self-care (01) ==
PROVIDERS: Emergency Provider Registered Nurse Emergency; PCP Nurse Practitioner Family
DX: J18.9 Pneumonia, unspecified organism (principal)
CPT/HCPCS: 36415; 80053; 96365; 99283; 85025; J1956

== ENCOUNTER 2021-02-17 13:38 | Outpatient (CLI) | payer MEDICAID, SELFPAY ==
--- NOTE | 2021-02-17 13:30 | DI.RAD_ITS ---
Exam(s) XR SHOULDER LT COMPLETE 2+V EXAM: XR SHOULDER LT COMPLETE 2+V CLINICAL HISTORY: left shoulder pain. TECHNIQUE: 2D digital imaging was performed of the left shoulder. Two images were obtained. AP and axillary views were obtained. COMPARISON: CR LEFT SHOULDER COMPLETE from 03/31/2014 FINDINGS: BONES: No acute fracture is present. No bony destructive lesion is seen. JOINTS: No dislocation present. There are degenerative changes seen at the acromioclavicular and tana ohumeral joint. SOFT TISSUE: Normal. IMPRESSION: Mild degenerative changes of the left shoulder which have progressed since the prior examination. DATA REPOSITORY: RADIATION DOSE DELIVERED:
== END 2021-02-17 13:39 | disposition home or self-care (01) ==
LOC: DIORS 13:38
PROVIDERS: PCP Nurse Practitioner Family; Referring Provider Nurse Practitioner Family; Visit Provider Student in an Organized Health Care Education/Training Program
DX: M25.512 Pain in left shoulder (principal); M75.52 Bursitis of left shoulder; M19.012 Primary osteoarthritis, left shoulder
CPT/HCPCS: 73030

== ENCOUNTER 2021-03-25 17:18 | Emergency (ER) | payer MEDICAID, SELFPAY ==
[2021-03-25 17:21] VITALS: BP 139/80; PULSE 92; RESP 18; TEMP 37; O2SAT 97
--- NOTE | 2021-03-25 17:47 | ED.GENADUL_ITS ---
Discharge Plan Disposition Patient Disposition: HOME Condition: Stable Discharge Details Clinical Impression: Acute lumbosacral myofascial strain Primary Care Provider: Harriet Sousa ED Provider: Apollo Guerrero Home Meds and New Rx's Prescriptions: New cyclobenzaprine 10 mg tablet 10 mg PO TID PRN (Reason: muscle spasm) Qty: 15 RF: 0 Continued acetaminophen [Tylenol Arthritis Pain] 650 mg tablet extended release 650 mg PO Q12H RF: 0 albuterol sulfate [Proventil HFA] 90 mcg/actuation HFA aerosol inhaler 2 puff inhalation Q6H PRN (Reason: shortness of breath or wheezing) RF: 0 Changed ibuprofen 200 mg capsule 600 mg PO Q6H PRNQty: 0 RF: 0 Discharge Instructions Instructions: Low Back Strain (ED) Additional Instructions: As discussed if you have any worsening of symptoms including fever chills, changes in bowel or bladder function, dysfunction of your lower extremities or severe radiation of pain please return for evaluation. Otherwise continue to perform low back stretches as discussed and follow-up with primary care provider in 1 to 2 weeks if not improving Stand Alone Forms: Work Release Discharge Data Discharge Date/Time-TO BE ENTERED AT DEPARTURE: 03/25/21 18:04 Medical Decision Making Patient here for back pain. LOW risk for ABDOMINAL AORTIC ANEURYSM, CAUDA EQUINA SYNDROME, EPIDURAL MASS LESION, SPINAL STENOSIS, OR HERNIATED DISK CAUSING SEVERE STENOSIS, thus I consider the discharge disposition reasonable. Patient with near fall and no acute blunt trauma and pain is mostly from a twisting motion causing palpable spasm to the left lower spine. We have discussed the diagnosis and risks, and we agree with discharging home to follow-up with their primary doctor. We also discussed returning to the Emergency Department immediately if new or worsening symptoms occur. We have discussed the symptoms which are most concerning (e.g., saddle anesthesia, urinary or bowel incontinence or retention, changing or worsening pain) that necessitate immediate return. HPI General Mode of arrival: ambulatory . Date/Time Provider Initiated Documentation: 03/25/21 17:25 . Limitations to Documentation: no limitations . Information obtained by: patient . History of Present Illness 45 year old F presents to the emergency department with the chief complaint of Patient reports near fall 2 days ago with low back pain now , described as moderate, with intensity rated at 6. Quality is described as aching and sharp, and is localized to the left. Patient reports no radiation. Patient started expe riencing this day(s) (2) and it has been constant. No relieving factors improve symptom(s), Movement worsens symptoms . Patient notes no other symptoms.. Patient did receive the following treatments prior to arrival, NSAID Related Data Home Medications Medication Instructions Recorded Confirmed acetaminophen 650 mg 650 mg PO Q12H 02/15/19 03/25/21 tablet,extended release albuterol sulfate 90 mcg/actuation 2 puff INHALATION Q6H PRN g 02/17/21 03/25/21 aerosol inhaler cyclobenzaprine 10 mg PO TID PRN #15 tab 03/25/21 ibuprofen 600 mg PO Q6H PRN #0 cap 03/25/21 03/25/21 Previous Rx's Medication Instructions Recorded cyclobenzaprine 10 mg PO TID PRN #15 tab 03/25/21 ibuprofen 600 mg PO Q6H PRN #0 cap 03/25/21 Allergies Allergy/AdvReac Type Severity Reaction Status Date / Time No Known Allergies Allergy Verified 03/25/21 17:28 General Stated Complaint: Nk/Back Pain MIGUEL: 3 Review of Systems Constitutional Constitutional: Denies chills and Denies fever(s) Cardiovascular Cardiovascular: Denies chest pain and Denies dyspnea on exertion Respiratory Respiratory: Denies cough and Denies dyspnea on exertion Gastrointestinal Gastrointestinal: Denies abdominal pain, Denies change in bowel habits, Denies diarrhea, Denies nausea and Denies vomiting Genitourinary Genitourinary: Denies urinary incontinence Musculoskeletal Musculoskeletal: Reports as per HPI and Reports back pain Neurologic Neurologic: Denies sensory deficit PFSH All Active Problems Acute lumbosacral myofascial strain (Acute) Biceps tendinitis of left shoulder (Acute) Tendonitis of left rotator cuff (Acute) Cubital tunnel syndrome on left (Acute) Arthritis of left glenohumeral joint (Acute) Bursitis of left shoulder (Acute) Hip pain, right (Acute) Pneumonia (Acute) Abscess of toe, right (Acute) Cellulitis of right foot (Acute) Follow up (Acute) Hx of cholecystectomy (Chronic) Biliary dyskinesia (Acute) H. pylori infection (Acute) Trochanteric bursitis, left hip (Chronic) Atopic dermatitis (Chronic) Tobacco use disorder (Chronic) Medical History Depression Endometriosis (05/14/15) Helicobacter pylori (H. 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 Pets and animals: No Sexually active: No Current gender identity: female What type of physical activity do you participate in: walking Frequency: 5-6 times per week Do you feel safe at home: Yes Do you feel safe in your relationship?: Yes Additional Social history: not in a relationship Exam Const General: cooperative and no acute distress Orientation: alert, awake and oriented x3 Neck Neck: normal visual inspection Resp Effort & Inspection: normal respiratory effort Auscultation: clear to auscultation bilaterally Cardio Rate: regular rate Rhythm: regular rhythm Heart Sounds: S1 normal and S2 normal Back/Spine/Pelvis Thoracic/Lumbar Spine: pain with thoraco-lumbar ROM, paraspinal tenderness (Left lumbar), thoraco-lumbar ROM limited, No thoracic spinal tenderness, No lumbar spinal tenderness and other (Palpable spasm noted to left lower lumbar paraspin al tissue with point soft) Pelvis: no pain with anterior-posterior compression, no pain with lateral compression, buttock tenderness on the left and no sciatic notch tenderness Neuro General: patient alert, patient awake and patient oriented x3 DTR's: Rt Patellar: 2+, Lt Patellar: 2+, Rt Ankle: 2+ and Lt Ankle: 2+ Course Vital Signs Vital signs: Vital Signs Temperature 37 C 03/25/21 17: Pulse 92 H 03/25/21 17:21 Respiratory Rate 18 03/25/21 17:21 Blood Pressure 139/80 03/25/21 17:21 Pulse Oximetry 97 03/25/21 17:21 Temperature 37 C 03/25/21 17:21 Temperature Source Temporal Artery Scan 03/25/21 17:21 Pulse 92 H 03/25/21 17:21 Respiratory Rate 18 03/25/21 17:21 Respiratory Effort Non-Labored 03/25/21 17:27 Blood Pressure 139/80 03/25/21 17:21 Blood Pressure Position Sitting 03/25/21 17:21 Pulse Oximetry 97 03/25/21 17:21 Oxygen Delivery Method Room Air 03/25/21 17:21 Oxygen Flow Rate 0 03/25/21 17:21 Pain Level 6 03/25/21 17:29
[2021-03-25] MEDS: Ketorolac 15 MG/ML VIAL IM (18:00)
== END 2021-03-25 18:04 | disposition home or self-care (01) ==
PROVIDERS: Emergency Provider Nurse Practitioner Family; PCP Nurse Practitioner Family
DX: S39.012A Strain of muscle, fascia and tendon of lower back, initial encounter (principal); W18.49XA Other slipping, tripping and stumbling without falling, initial encounter
CPT/HCPCS: 96372; 99284; 99283; J1885

== ENCOUNTER 2021-05-08 01:49 | Outpatient (CLI) | payer MEDICAID, SELFPAY ==
--- NOTE | 2021-05-08 06:45 | DI.MRI_ITS ---
Exam(s) MR UPPER JOINT LT WO EXAM: MR UPPER JOINT LT WO CLINICAL HISTORY: Persistent pain,biceps tendinitis,arthritis lt ac joint,m75.22,m75.82,. TECHNIQUE: Multiplanar multisequence MRI was performed. COMPARISON: CR XR SHOULDER LT COMPLETE 2+V from 02/17/2021 FINDINGS: BONES: There is no fracture or contusion pattern. Subchondral cysts are seen in the anterior inferior labrum. JOINTS: Mild degenerative changes are seen at the acromioclavicular joint. The glenohumeral joint is normal. TENDONS: Supraspinatus: There is thickening and intermediate signal seen in the supraspinatus tendon suspiciou s for tendinosis. A small partial tear cannot be excluded. No evidence of a full-thickness tear is seen. Infraspinatus: Unremarkable. Subscapularis: There is mild increased signal seen in the subscapularis tendon. This is consistent w ith tendinosis. There is a focus of hyperintense signal seen near its insertion site suspicious for partial tear. Teres Minor: Unremarkable. Biceps and Myrtle: There is thickening and intermediate signal seen in the biceps tendon consistent w ith tendinosis. MUSCLES: Unremarkable. GLENOID LABRUM: There is a 1.2 x 0.3 cm septated cyst at the anterior inferior aspect of the glenoid labrum suspicious for a paralabral cyst. An associated labral tear should be considered. The remain roscoe of the labrum is unremarkable. SOFT TISSUES: Unremarkable. LIGAMENTS: Unremarkable. OTHER: There is a small amount of fluid in the subacromial subdeltoid bursa. IMPRESSION: 1. Tendinosis involving the supraspinatus subscapularis and biceps tendons. 2. Focus of hyperintense signal in the subscapularis tendon near its insertion site suspicious for pa rtial tear. 3. 1.2 x 0.3 cm septated cyst at the inferior anterior aspect of the glenoid labrum suspicious for pa ralabral cyst. An associated labral tear should be considered. 4. Small amount of fluid in the subacromial subdeltoid bursa. 5. Degenerative changes of the acromioclavicular joint and the glenohumeral joint. DATA REPOSITORY:
== END 2021-05-08 02:09 ==
PROVIDERS: PCP Nurse Practitioner Family; Visit Provider Student in an Organized Health Care Education/Training Program
DX: M25.512 Pain in left shoulder (principal); M75.22 Bicipital tendinitis, left shoulder; M75.82 Other shoulder lesions, left shoulder; M19.012 Primary osteoarthritis, left shoulder; M25.412 Effusion, left shoulder
CPT/HCPCS: 73221

== ENCOUNTER 2021-06-25 01:56 | Outpatient (CLI) | payer MEDICAID, SELFPAY ==
--- NOTE | 2021-06-25 07:45 | DI.RAD_ITS ---
Exam(s) RF JOINT INJECTION FLUORO GUID EXAM: RF JOINT INJECTION FLUORO GUID CLINICAL HISTORY: L SHOULDER PAIN,TENDONITIS,ARTHRITIS LT GLENOHUMERAL JOINT,BURSITIS,M75.22, TECHNIQUE: Fluoroscopy provided. Radiologist not present. CONTRAST MATERIAL: None COMPARISON: No exams were available for comparison FINDINGS: Fluoroscopy was provided for left shoulder joint injection. Submitted image(s) reveal distal tip of the needle to be at the superior medial aspect of the humeral head. Please refer to the procedure report for complete details. Injected contrast is intra articular Cumulative Dose: Rileyr=2.82 mGy IMPRESSION: RADIATION DOSE DELIVERED:
[2021-06-25] MEDS: methylPREDNISolone ACETATE 80 MG/ML VIAL IM (13:20)
[2021-06-25] MEDS: Omnipaque 300 MG/ML 10 ML BTL IJ (13:20)
[2021-06-25] MEDS: Bupivacaine 0.5% Pres-Free 10 ML VIAL IJ (13:21)
--- NOTE | 2021-06-25 13:22 | OPPNE_ITS ---
Procedure Note Date of procedure: 06/25/21 Procedure: Left Shoulder Injection Surgeon/Proceduralist/Physician: Jin Vidal Procedure Diagnosis: Left Shoulder Pain / Arthritis Procedure Indications: Sophie has had persistent pain of the LEFT shoulder. Noninvasive measures have been tried. Dr. Burns asked that I inject the the left shoulder under fluoroscopic guidance to serve as both diagnostic and therapeutic. I had di scussed the risks of the procedure and the patient elected to proceed. Procedure Description: Sophie was greeted in the flouroscopy room. The correct side was identified and the consent was reviewed with the patient and signed. The patient was then placed in the supine position on the fluoroscopy table. The LEFT shoulder was then prepped with Chloraprep. The anterior injection starting point was identiifed by bony landmarks and fluoroscopy. The skin and soft tissue in the tract of the injection was anesthetized with 1% Lidocaine. A spinal needle was then inserted deep into the shoulder joint at the level of the recess between the glenoid and superior humeral head. A small amount of Omnipaque solution was injected to confirm intraarticular placement. Once confirmed, the shoulder was injected with 4cc of 0.5% Bupivicaine and 80mg of Depo-Medrol. A bandaid was placed on the injection site. The patient tolerated the procedure well.
== END 2021-06-25 02:16 ==
PROVIDERS: PCP Nurse Practitioner Family; Visit Provider Student in an Organized Health Care Education/Training Program
DX: M19.012 Primary osteoarthritis, left shoulder (principal); M75.22 Bicipital tendinitis, left shoulder; M75.52 Bursitis of left shoulder; M75.82 Other shoulder lesions, left shoulder; M25.512 Pain in left shoulder
CPT/HCPCS: 20610; 77002; J1040

== ENCOUNTER 2021-09-29 00:41 | Outpatient (CLI) | payer MEDICAID, SELFPAY ==
[2021-09-29 12:28] LABS: Source Nasal/Nares
[2021-09-30 01:20] LABS: COVID-19 PCR Negative (Negative)
== END 2021-09-29 00:42 | disposition home or self-care (01) ==
LOC: LBO 00:41
PROVIDERS: PCP Nurse Practitioner Family; Visit Provider Student in an Organized Health Care Education/Training Program
DX: Z20.822 Contact with and (suspected) exposure to COVID-19 (principal); Z01.818 Encounter for other preprocedural examination
CPT/HCPCS: 87635

== ENCOUNTER 2021-10-01 09:22 | Day surgery (SDC) | payer MEDICAID, SELFPAY ==
[2021-10-01] VITALS (10 sets, daily range): BP systolic 85–123; BP diastolic 26–76; PULSE 52–72; RESP 16–23; TEMP 36.1–36.4; O2SAT 92–98; BMI 27.2
--- NOTE | 2021-10-01 09:38 | W.ANESPRE ---
General Info Date of Service Date Performed: 10/01/21 Height: 5 ft 2 in Weight: 67.585 kg Body Mass Index (BMI): 27.2 Surgical Procedure: Operation Date: 10/01/21 11:25 Proposed Procedure Side Surgeon p Shoulder Arthroscopy w/Extensive Debridement, Bicep Tenodesis, Subacromial Decompression Left Flash Burns MD Meds Allergies and Home Medications Allergies Allergy/AdvReac Type Severity Reaction Status Date / Time No Known Allergies Allergy Verified 10/01/21 09:47 Home Medication Medication Instructions Recorded acetaminophen 650 mg 650 mg PO Q12H 02/15/19 tablet,extended release (Tylenol Arthritis Pain) albuterol sulfate 90 mcg/actuation 2 puff inhalation Q6H PRN 02/17/21 aerosol inhaler (Proventil HFA) shortness of breath or wheezing Current Visit Medications: Current Medications Generic Name Dose Route Start Last Admin Trade Name Freq PRN Reason Stop Dose Admin Ringer's Solution 1,000 mls @ 30 mls/hr 10/01/21 06:00 IV 10/30/21 23:59 INFUSION LISA Cefazolin Sodium/Dextrose 2 gm in 50 mls @ 100 mls/hr 10/01/21 06:00 Ancef Duplex IVPB 10/01/21 16:00 PREOP LISA IV Miscellaneous Supplies 1 each 10/01/21 06:00 Iv Access IV 10/30/21 23:59 DIRECTED LISA Naproxen 250 - 500 mg 10/01/21 07:29 Naproxen 500 Mg Tab PO BID PRN PRN Oxycodone HCl 5 - 10 mg 10/01/21 07:29 Oxycodone 5 Mg Tab PO Q4H PRN PRN Sodium Chloride 0 ml 10/01/21 06:00 Normal Saline Flush 10 Ml Syr IV 10/30/21 23:59 PRN PRN Sodium Chloride 0 ml 10/01/21 06:00 Normal Saline 10 Ml Vial IJ 10/30/21 23:59 DIRECTED PRN Sterile Water 0 ml 10/01/21 06:00 Water,Injection,Sterile 10 Ml Vial IJ 10/30/21 23:59 DIRECTED PRN PFSH Active Problems Active Problems: Problem Status Onset Code Bilateral carpal tunnel syndrome G56.03 Acute lumbosacral myofascial strain S39.012A Biceps tendinitis of left shoulder M75.22 Tendonitis of left rotator cuff M75.82 Cubital tunnel syndrome on left G56.22 Arthritis of left glenohumeral joint M19.012 Bursitis of left shoulder M75.52 Hip pain, right M25.551 Pneumonia J18.9 Abscess of toe, right L02.611 Cellulitis of right foot L03.115 Follow up Z09 Hx of cholecystectomy Z90.49 Biliary dyskinesia K82.8 H. pylori infection A04.8 Trochanteric bursitis, left hip M70.62 Atopic dermatitis L20.9 Tobacco use disorder F17.200 Medical History Medical History Depression Endometriosis (05/14/15) Helicobacter pylori (H. pylori) infection Surgical History Surgical History section (~1994) x1 Dilation and curettage (02/11/04) laparoscopy w/ bx Hernia Repair, Ventral (10/23/14) Hysterectomy, Laproscopic (04/22/04) BSO Tobacco Smoking/Tobacco Use Status: Current every day Tobacco Type: cigarettes Smoking cigarettes per day: 10 Years smoked: 25 Alcohol Alcohol Intake: current Alcohol intake frequency: holidays/special occasions only Alcohol type: hard liquor Substance Use Substance use: Occasionally Substance use type: marijuana Vital Signs and Lab Results Lab Results Blood Type / Crossmatch: No Data to Display Complete Blood Count: No Data to Display Complete Metabolic Panel: No Data to Display Liver Function Panel: No Data to Display Coagulation Panel: No Data to Display Cardiac Panel: No Data to Display Arterial Blood Gas: No Data to Display Venous Blood Gas: No Data to Display Pancreas Panel: No Data to Display Thyroid Panel: No Data to Display Infectious Disease: Coronavirus (COVID-19)(PCR) Negative (Negative) 09/29/21 11:05 Coronavirus 2019 Source Nasal/Nares 09/29/21 11:05 Blood Cultures: No Data to Display Toxicology Panel: No Data to Display Panel: No Data to Display Imaging and Studies Imaging and Studies Study information below may be from another EMR and interpreted by another provider. Please see original notes in EMR for more complete details. EKG Summary: Conclusion Sinus rhythm...normal P axis, V-rate 60- 99 sinus rhythm at 73, normal axis, apparent artifact present v3 and V6, no STEMI, nondiagnostic EKG Anesthesia Assessment and Plan Anesthesia History Personal History: No History of Anesthesia Complications Family History: No Family History of Anesthesia Complications Exercise Tolerance Exercise Tolerance: Metabolic Equivalents>4 Pertinent Negatives Pertinent Negatives: No Symptoms of GERD, No Major Cardiovascular Symptoms or Complaints, No Major Pulmonary Symptoms or Complaints and No History of CVA/TIA Cardiac & Pulmonary Exam Cardiac Exam: Normal S1/S2 Heart Sounds Pulmonary Exam: Clear Bilateral Breath Sounds Implantable Cardiac Device Does patient have a Pacemaker or an ICD?: No Airway Exam Known Difficult Airway: No Mallampati Class: 2 Mouth Opening: Normal (> 3cm) Thyromental Distance: Greater than 3 cm Neck Range of Motion: Full ROM Neck Circumference: Normal Teeth Condition: Generalized Poor Dentition Tooth Numberin. Missing teeth 2. Missing crown 3. Missing crown ASA Classification ASA Score: ASA 2 Emergency Case?: No NPO Status NPO Status: NPO Clears >2 hours, Solids >8 hours Status Status: History of Hysterectomy Anesthesia Plan Resuscitation Status: Full Code Anesthesia Technique: General Anesthesia Airway Planned: Endotracheal Tube Pain Management: Surgeon and patient request nerve block Monitors Used: Standard Monitors
[2021-10-01] MEDS: Lactated Ringers 1,000 ML 30 ML IV (10:30)
--- NOTE | 2021-10-01 11:50 | W.ANESNERVE ---
Nerve Block Single Injection Procedure Date and Time Date Performed: 10/01/21 Procedure Start: 11:34 Location Where Procedure Performed Procedure Location: Day Surgery Unit Reason Performed: Postoperative Analgesia Requesting Provider: Flash Burns Timeout Performed Timeout Performed: Yes Monitoring Used ECG, Blood Pressure and SpO2 Sterility Sterility: Hand Hygiene, Surgical Cap, Surgical Mask, Sterile Gloves and Chlorhexidine Sedation Given During Procedure Sedation Given (Indicate Dose Given): Versed IV Dose:: 2 mg Patient Mental Status Patient Mental Status: Sedate with meaningful communication Nerve Block 1st Nerve Block: Laterality: Left Block Type: Interscalene Needle / Catheter Used: 100mm SonoPlex II Local Anesthetic Bolus (Indicate Dose Given): Lidocaine used for local infiltration of skin, Injected in 3-5ml increments after negative blood aspiration and Bupivacaine 0.5% Dose:: 20 ml Additives (Indicate Dose Given): Precedex Dose:: 65 mcg Ultrasound: Sterile probe cover and gel used Ultrasound Image Saved?: Yes Nerve Stimulator: Not Used Paresthesia: Left Paresthesia Duration: Transient Procedure Tolerated: No Complications and Patient tolerated well Procedure Outcome: Successful Performed By: Ozzie Boland
[2021-10-01] MEDS: ceFAZolin 2 GM/50 ML BAG IVPB (11:57)
[2021-10-01] MEDS: EPINEPHrine 30 MG/30 ML VIAL (13:18)
--- NOTE | 2021-10-01 13:26 | W.PM.DSUDISC ---
Discharge Plan Disposition Patient Disposition: HOME Condition: Stable Discharge Details Reason For Visit: Left shoulder surgery Attending Provider: Flash Burns Primary Care Provider: Harriet Sousa Home Meds and New Rx's Prescriptions: New aspirin 81 mg tablet,delayed release (DR/EC) 81 mg PO DAILY 14 Days Qty: 14 0RF naproxen 250 mg tablet 250 - 500 mg PO BID PRNQty: 40 0RF Rx Instructions: take with a meal oxycodone 5 mg tablet 5 - 10 mg PO Q4H MDD 30 mg PRN (Reason: moderate to severe pain) Qty: 18 0RF Continued acetaminophen [Tylenol Arthritis Pain] 650 mg tablet extended release 650 mg PO Q12H albuterol sulfate [Proventil HFA] 90 mcg/actuation HFA aerosol inhaler 2 puff inhalation Q6H PRN (Reason: shortness of breath or wheezing) Discontinued ibuprofen 200 mg capsule 600 mg PO Q6H PRNQty: 0 0RF Discharge Instructions Additional Instructions: Surgery: Left shoulder arthroscopy with biceps tenodesis, extensive debridement, and subacromial decompression. Activity: You should gradually increase range of motion motion and use of your shoulder. Do not lift more than a coffee. You may use your shoulder for all gentle activities of daily living. Avoid lifting weight, working overhead, and lifting away from body for approximately 6 to 8 weeks. You may use the sling whenever you are out of the house for a few weeks. At home it is best to remove the sling and rest the arm on a pillow at your side or support the operative side with your other hand. A physical therapy prescription will be sent electronically to start in about 2 weeks. Prescriptions: Aspirin 81 mg take 1 daily to prevent a blood clot for 2 weeks Naproxen 250 mg take 1-2 every 12 hours with a meal as needed for moderate pain Oxycodone 5 mg take 1-2 every 4-6 hours as needed for severe pain You may use [id number] Tylenol (acetaminophen) as needed for mild pain. These pain medications may be taken all at once or in different combinations as needed. Also, recommend Colace (docusate) as a stool softener as surgery and pain medicine cause constipation. You may try gkxr-ovw-psovcei diphenhydramine (Benadryl) 25-50 mg nightly as a sleep aid Dressings: Remove shoulder bandage after 3 days. Leave the sticky Steri-Strips in place until they fall off or remove them after you shower. Cover the incisions with Band-Aids or leave them open to air. You may shower after 5 days. Follow-up: 10-[address] Burns You may take off the leg compression stockings this evening at home. You may also leave them on a few days longer if you have a history of leg swelling or edema. Let us know right away if you develop any redness, drainage, fevers, chest pain, or trouble breathing. Do not drink alcohol or drive for at least 24 hours after anesthesia. Please call the office during business hours with any questions or concerns. Discharge Orders Discharge Orders: Discharge Order (Routine); Ordered 10/01/21 Ordered By: Flash Burns DS: Diagnosis Discharge Diagnosis (1) Biceps tendinitis of left shoulder: Status: Acute (2) Arthritis of left glenohumeral joint: Status: Acute (3) Bursitis of left shoulder: Status: Acute
[2021-10-01] MEDS: ePHEDrine 25 MG/5 ML Syringe IVP (13:50)
--- NOTE | 2021-10-01 14:21 | W.ANESPOSTOP ---
Postoperative Evaluation Date, Time and Location Date Performed: 10/01/21 Time Performed: 14:21 Patient Location: PACU Vital Signs Most Recent Imported Vital Signs: Most Recent Vital Signs Temp Pulse Resp BP Pulse Ox 36.4 C L 57 L 16 89/64 L 93 10/01/21 14:20 10/01/21 14:20 10/01/21 14:20 10/01/21 14:20 10/01/21 14:20 Pain Score Most Recent Pain Score: Most Recent Pain Score Pain Level 0 10/01/21 14:20 Assessment Mental Status: Awake (Alert & Oriented to Patient Baseline) Airway and Respiratory Function: Patent airway with normal (patient baseline) respiratory exam Cardiovascular Function: Hemodynamically Stable Hydration Status: Adequately Hydrated Nausea & Vomiting: No Nausea or Vomiting Pain: Pt. Denies Any Pain Peripheral Nerve Block: Regional nerve block not resolved at time of post operative discharge
--- NOTE | 2021-10-01 14:33 | W.PM.OP ---
Operative Note Operative Note DATE OF PROCEDURE: 10/01/21 PRE-OP DIAGNOSIS: Left: 1. Glenohumeral arthritis 2. LHB tendinopathy 3. Bursitis POST-OP DIAGNOSIS: same PROCEDURE: Left: 1. Arthroscopic biceps tenodesis, CPT# 63007. This involved arthroscopically suturing and reattaching the long head of the biceps tendon to the proximal humerus at the superior margin of the bicipital groove with a screw at the correct tension. 2. Extensive debridement, CPT# 03073. This involved using arthroscopic hand instruments, power instruments, and radiofrequency instruments to release the long head of the biceps tendon and debride areas of labral tearing, synovitis, partial articular sided rotator cuff tearing, and chondromalacia about the biceps groove within the glenohumeral joint anteriorly, superiorly and posteriorly. 3. Subacromial decompression with partial acromioplasty, CPT# 51647. This involved using arthroscopic power instruments and a radiofrequency wand to complete a bursectomy and remove bone spurs on the undersurface of the acromion. The household personal assistant was medically required in order to help assist in techniques above, which require positioning the arm, holding the arthroscope, and manipulating multiple instruments and sutures at the same time. This cannot be done without the help of an experienced household personal assistant. SURGEON: Flash Burns REGISTERED DIET TECHNICIAN: Ayla Brock ANESTHESIA TYPE: General LMA/ETT and Primary Nerve Block Refer to Anesthesia Record ESTIMATED BLOOD LOSS: 10 PATHOLOGY: none sent COMPLICATIONS: None Patient was transported to: PACU Patient's condition: stable Implants: Arthrex: 4.75mm SwiveLocks x 1 Indications: The patient was diagnosed with the above conditions and appropriately indicated for surgical intervention. Please see complete medical record for details. Findings: Exam under anesthesia: Full range of motion, no instability Glenohumeral joint: Significant anterior and superior synovitis. Anterior labral fraying and sublabial foramen about localized chondromalacia on the anterior glenoid about the equator. Degenerative type SLAP tear. Long head biceps fraying and impingement on articular sided far anterior rotator cuff tear. Moderate partial articular sided rotator cuff fraying with no significant disruption of the footprint. Intact subscapularis. Moderate inferior humeral head high-grade chondromalacia. Localized high-grade chondromalacia about bicipital groove. No significant impinging inferior humeral osteophyte. Subacromial space: Significant bursitis. Intact bursal rotator cuff. Procedure Description: In the operating room, general anesthesia was induced. Bilateral shoulders were examined. The patient was positioned in the beachchair position. All bony prominences were well-padded. Preoperative antibiotics were administered. The shoulder was prepped and draped in the usual sterile fashion. The correct patient, procedure, and side of the procedure were all verified prior to incision. Starting through the posterior portal a standard complete diagnostic arthroscopy was performed of the glenohumeral joint including inspection of the long head of the biceps, anterior and superior labrum, subscapularis tendon, supraspinatus and infraspinatus tendons, and axillary recess. The glenoid and humeral head cartilage as well as the posterior labrum were inspected from an anterior viewing portal. Significant findings and interventions noted above. An all-arthroscopic suprapectoral biceps tenodesis was performed through an anterior portal using a Loop N Tack method with a SutureTape FiberLink cinched around and through the tendon. The biceps was tenotomized from the labrum and fixated with a suture anchor at the superior margin of the bicipital groove. Starting through the posterior portal, the arthroscope was directed into the subacromial space. A lateral 50 yard line lateral portal was created. A combination of power instruments and a radiofrequency ablator were used to debride bursitis anteriorly, posteriorly, and laterally as well as expose and smooth bone spurring on the undersurface of the acromion. The coracoacromial ligament was partially released. The bursectomy was completed viewing laterally and working from posteriorly and the rotator cuff was thoroughly inspected with findings noted above. The shoulder was drained of arthroscopic fluid. All portal sites were copiously irrigated. These incisions were closed using 3-0 Monocryl in a buried fashion and then covered with Mastisol, Steri-Strips, Xeroform, dry gauze, and ABDs. The dressings were covered and secured with Medipore tape. The operative extremity was placed into a sling for immobilization. The patient awoke from anesthesia without complication and was transferred to the recovery room in a stable condition.
== END 2021-10-01 15:37 | disposition home or self-care (01) ==
PROVIDERS: PCP Nurse Practitioner Family; Visit Provider Student in an Organized Health Care Education/Training Program
PROC: (CPT 29805; principal; 2021-10-01 11:15)
DX: M75.22 Bicipital tendinitis, left shoulder (principal); M19.012 Primary osteoarthritis, left shoulder; M75.52 Bursitis of left shoulder
CPT/HCPCS: 29828; 29823; 29826; 76942; J0690; J1100; J2250; J2370; J2405; J2704

== ENCOUNTER 2021-11-30 10:34 | Emergency (ER) | payer MEDICAID, SELFPAY ==
[2021-11-30 10:51] VITALS: BP 148/109; PULSE 86; RESP 14; TEMP 37.1; O2SAT 95
--- NOTE | 2021-11-30 11:14 | ED.GENADUL_ITS ---
Discharge Plan Disposition Patient Disposition: HOME Condition: Improving Discharge Details Clinical Impression: Acute bronchitis, Cellulitis of fourth toe of left foot Primary Care Provider: Harriet Sousa ED Provider: Schuyler Mercado Home Meds and New Rx's Prescriptions: New amoxicillin-pot clavulanate 875-125 mg tablet 1 tab PO BID 10 Days Qty: 20 0RF albuterol sulfate [Proventil HFA] 90 mcg/actuation HFA aerosol inhaler 2 puff inhalation Q6H PRN30 Days Qty: 6.7 0RF Continued ibuprofen 200 mg tablet 200 mg PO Q6H PRN acetaminophen [Tylenol Arthritis Pain] 650 mg tablet extended release 650 mg PO Q12H No Action albuterol sulfate [Proventil HFA] 90 mcg/actuation HFA aerosol inhaler 2 puff inhalation Q6H PRN (Reason: shortness of breath or wheezing) Discharge Instructions Instructions: Cellulitis (ED), Acute Bronchitis (ED) Additional Instructions: Home to rest today. Salt water soaks of the foot twice a day. Let the foot air dry. Take Augmentin as prescribed. I recommend you take an omut-nsi-uwmiuar probiotic once daily while on this medication. Albuterol has been prescribed if needed for wheezing. Continue efforts to decrease smoking. Return for any acute concern. Medical Decision Making 38-year-old female smoker presents with 2 complaints. One is of a cellulitis on her left fourth toe. The other is of 2 weeks of cough with congestion and production of sputum. She is well-appearing, cough is demonstrated on exam, and she has a history of bronchitis recurrently, likely due to her smoking. I will place her on a course of Augmentin for 10 days. She has run out of her inhaler and while not wheezy at this time we will represcribe an albuterol rescue inhaler for her. She understands home care and return precautions for reevaluation. She is stable at this time. HPI General Mode of arrival: ambulatory . Date/Time Provider Initiated Documentation: 11/30/21 11:06 . Limitations to Documentation: no limitations . Information obtained by: patient . History of Present Illness 46 year old F presents to the emergency department with the chief complaint of Congestion congestion and cough for 2 weeks, with left foot infection, described as moderate, and is localized to the chest. Patient reports no radiation. Patient started experiencing this day(s) and it has been intermittent. No relieving factors improve symptom(s), No exacerbating factors reported . Patient notes denies fever/chills. Patient did receive the following treatments prior to arrival, none Related Data Home Medications Medication Instructions Recorded Confirmed acetaminophen 650 mg 650 mg PO Q12H 02/15/19 11/30/21 tablet,extended release (Tylenol Arthritis Pain) albuterol sulfate 90 mcg/actuation 2 puff inhalation Q6H PRN 02/17/21 11/30/21 aerosol inhaler (Proventil HFA) shortness of breath or wheezing ibuprofen 200 mg tablet 200 mg PO Q6H PRN 11/25/21 11/30/21 albuterol sulfate 90 mcg/actuation 2 puff inhalation Q6H PRN 1 month 11/30/21 aerosol inhaler (Proventil HFA) #6.7 grams amoxicillin 875 mg-potassium 1 tab PO BID 10 days #20 tabs 11/30/21 clavulanate 125 mg tablet Previous Rx's Medication Instructions Recorded albuterol sulfate 90 mcg/actuation 2 puff inhalation Q6H PRN 1 month 11/30/21 aerosol inhaler (Proventil HFA) #6.7 grams amoxicillin 875 mg-potassium 1 tab PO BID 10 days #20 tabs 11/30/21 clavulanate 125 mg tablet Allergies Allergy/AdvReac Type Severity Reaction Status Date / Time No Known Allergies Allergy Verified 11/30/21 10:54 General Stated Complaint: [employer] MIGUEL: 4 Review of Systems Narrative: 6 systems reviewed and otherwise negative. Continues to smoke 5 to 10 cigarettes/day. Ran out of her inhaler. [facility] All Active Problems (Updated 11/30/21 @ 11:17 by Schuyler Mercado MD) Acute bronchitis (Acute) Cellulitis of fourth toe of left foot (Acute) Status post arthroscopy of left shoulder (Acute 10/01/21) Arthroscopic biceps tenodesis, extensive debridement, subacromial decompression Bilateral carpal tunnel syndrome (Acute) Acute lumbosacral myofascial strain (Acute) Biceps tendinitis of left shoulder (Acute) Cubital tunnel syndrome on left (Acute) Arthritis of left glenohumeral joint (Acute) Hip pain, right (Acute) Pneumonia (Acute) Abscess of toe, right (Acute) Cellulitis of right foot (Acute) Follow up (Acute) Hx of cholecystectomy (Chronic) 09/26/18 [facility] (Ayla Candelario, DO) Biliary dyskinesia (Acute) H. pylori infection (Acute) Trochanteric bursitis, left hip (Chronic) Atopic dermatitis (Chronic) Tobacco use disorder (Chronic) Medical History Bursitis of left shoulder Depression Endometriosis (05/14/15) Helicobacter pylori (H. pylori) infection Left rotator cuff tear Surgical History section (~1994) x1 Dilation and curettage (02/11/04) laparoscopy w/ bx Hernia Repair, Ventral (10/23/14) Hysterectomy, Laproscopic (04/22/04) BSO Social History Smoking/Tobacco Use Status: Current every day Tobacco Type: cigarettes Years smoked: 25 Smoking risk assessment performed?: Yes Alcohol Intake: current Alcohol Intake frequency: holidays/special occasions only Alcohol type: hard liquor Drug use: Daily Substance use type: marijuana Household members: children Number of Children: 2 current occupation: [employer] Pets and animals: No Sexually active: No Current gender identity: female What type of physical activity do you participate in: walking Frequency: 5-6 times per week Do you feel safe at home: Yes Do you feel safe in your relationship?: Yes Exam Narrative Exam Narrative: GEN: awake, alert, oriented 3. Pleasant, well groomed, interactive. HEAD: Normocephalic, atraumatic ENT: Mucous membranes moist, oropharynx unremarkable, External ear exam unremarkable EYES: PERRL, EOMI NECK: Full ROM, no BABAR, no menigismus CHEST/RESP: Nontender, cough noted, no wheezing CARDIOVASCULAR: RRR, no murmur, rub violet. 2+ Rad pulse bilateral ABDOMEN: Soft, nontender, no mass. +Bowel sounds EXT: Full ROM, the left fourth toe on the lateral aspect has an area of mild cellulitis Neuro: Grossly normal neurologic exam, conversant, interactive. Psych: Speech fluent, thoughts congruent, affect normal Course Vital Signs Vital signs: Vital Signs Temperature 37.1 C 11/30/21 10:51 Pulse 86 11/30/21 10:51 Respiratory Rate 14 11/30/21 10:51 Blood Pressure 148/109 H 11/30/21 10:51 Pulse Oximetry 95 11/30/21 10:51 Temperature 37.1 C 11/30/21 10:51 Temperature Source Temporal Artery Scan 11/30/21 10:51 Pulse 86 11/30/21 10:51 Respiratory Rate 14 11/30/21 10:51 Respiratory Effort Non-Labored 11/30/21 10:55 Respiratory Depth Normal 11/30/21 10:55 Respiratory Pattern Normal 11/30/21 10:55 Blood Pressure 148/109 H 11/30/21 10:51 Blood Pressure Position Sitting 11/30/21 10:51 Pulse Oximetry 95 11/30/21 10:51 Oxygen Delivery Method Room Air 11/30/21 10:51 Oxygen Flow Rate 0 11/30/21 10:51 Pain Level 3 11/30/21 10:51
== END 2021-11-30 11:31 | disposition home or self-care (01) ==
PROVIDERS: Emergency Provider Emergency Medicine; PCP Nurse Practitioner Family
DX: J20.9 Acute bronchitis, unspecified (principal); L03.032 Cellulitis of left toe; F17.210 Nicotine dependence, cigarettes, uncomplicated
CPT/HCPCS: 99283; 99284

== ENCOUNTER 2022-02-22 04:06 | Outpatient (CLI) | payer MEDICAID, SELFPAY ==
[2022-02-22 10:39] LABS: Anion Gap 9.3 mmol/L (3-11); BUN 10 mg/dL (7-18); CO2 27.7 mmol/L (21.0-32.0); CREATININE 0.9 mg/dL (0.55-1.02); Calcium 9.1 mg/dL (8.5-10.1); Calculated LDL 145 mg/dL (<100); Chloride 103 mmol/L (98-107); Cholesterol 213 mg/dL (<200); Estimated GFR 78.86 (mL/min/1.73m2); Glucose 98 mg/dL (74-106); HDL Cholesterol 43 mg/dL (40-60); Sodium 140 mmol/L (136-145); Triglyceride 129 mg/dL (<150)
== END 2022-02-22 04:07 | disposition home or self-care (01) ==
LOC: LBO 04:06
PROVIDERS: PCP Nurse Practitioner Family; Referring Provider Student in an Organized Health Care Education/Training Program; Visit Provider Student in an Organized Health Care Education/Training Program
DX: Z13.220 Encounter for screening for lipoid disorders (principal); F19.90 Other psychoactive substance use, unspecified, uncomplicated; N28.9 Disorder of kidney and ureter, unspecified
CPT/HCPCS: 36415; 80048; 80061

== ENCOUNTER → 2022-03-03 01:29 | Outpatient (CLI) | payer MEDICAID, SELFPAY ==
--- NOTE | 2022-03-03 07:00 | DI.MAMMO_ITS ---
Exam(s) MAMMO SCREENING EXAM: MAMMO SCREENING CLINICAL HISTORY: screening,z12.39 TECHNIQUE: Bilateral full field digital CC and MLO mammographic images were obtained with 3D tomosyn thesis and utilizing computer aided detection (CAD). COMPARISON: Available for comparison. FINDINGS: Masses/Architectural Distortion: None seen. Microcalcifications: No suspicious pleomorphic-type are seen. Skin Thickening/Nipple Retraction: None. IMPRESSION: 1. No significant interval change with no specific features of malignancy noted. 2. Unless there is more urgent need, screening mammography is recommended, as per [employer] guidelines. BI-RADS Category 1 - Negative Breast Density - Category B - Scattered areas of fibroglandular density Breast density category C or D implies that the patient has dense breast tissue. Dense breast tissue is very common and is not abnormal but dense breast tissue can make it harder to find cancer on a ma mmogram. Also, dense breast tissue may increase their breast cancer risk. This information about the result of the mammogram report was provided to the patient to raise their awareness. Use this report when you speak with the patient about their risks for breast cancer, which includes their family hist ory. At that time, you may recommend for more screening tests (Ultrasound or MRI) as they might be us eful based on their risk. A negative radiographic report should not delay biopsy if a dominant or clinically suspicious mass is present. Up to ten percent of cancers are not identified on mammography. A negative report may reinforce clinical impression. Adenosis and dense breasts may obscure an underlying neoplasm. False positive reports average 6 to 10%. Patient will receive a letter notifying them of these results.
== END ==
PROVIDERS: PCP Nurse Practitioner Family; Visit Provider Student in an Organized Health Care Education/Training Program
DX: Z12.31 Encounter for screening mammogram for malignant neoplasm of breast (principal)
CPT/HCPCS: 77063; 77067

== ENCOUNTER 2022-07-14 08:06 | Emergency (ER) | payer MEDICAID, SELFPAY ==
[2022-07-14 08:10] VITALS: BP 128/69; PULSE 75; RESP 18; TEMP 35.6; O2SAT 96
[2022-07-14] MEDS: Lactated Ringers 500 ML 1000 ML IV (08:55)
--- NOTE | 2022-07-14 09:01 | ED.GENADUL_ITS ---
Discharge Plan Disposition Patient Disposition: Home Condition: Stable Discharge Details Clinical Impression: Headache, Acute otitis media, right Primary Care Provider: Harriet Sousa ED Provider: Arpit Wells Home Meds and New Rx's Prescriptions: New amoxicillin 875 mg tablet 875 mg PO BID Qty: 9 0RF Continued ibuprofen 200 mg tablet 200 mg PO Q6H PRN acetaminophen [Tylenol Arthritis Pain] 650 mg tablet extended release 650 mg PO Q12H albuterol sulfate [Proventil HFA] 90 mcg/actuation HFA aerosol inhaler 2 puff inhalation Q6H PRN (Reason: shortness of breath or wheezing) Discharge Instructions Instructions: Ear Infection (ED), General Headache (ED) Additional Instructions: Please rest over the next couple days. No exertional activities. Allow for brain rest. No heavy focus concentration or prolonged screen time. Please contact your primary care physician to arrange follow-up. Return to the ER immediately for any worsening or new concerning symptoms. Referrals: Harriet Sousa NP [Primary Care Provider] - Medical Decision Making [phone] --46-year-old female with history of headaches in the past, here with severe headache. Patient is neurologically intact. Headache was gradual onset is not the worst headache of her life. I will treat headache with Compazine IV, Benadryl IV, Toradol IV and IV fluid. Patient does have bulging and erythematous right tympanic membrane concerning for potential otitis media. Will initiate treatment with amoxicillin. 953 --patient was reassessed and had significant improvement in her headache. Plan for discharge with outpatient follow-up. Disposition decision was made weighing the risks and benefits of hospitalization versus outpatient treatment, the risk for further decompensation, and the patient's wishes. The patient was stable and requested discharge. Prior to discharge, my usual and customary return precautions were reviewed with the patient - this included follow-up instructions and reason to return to the emergency department if condition worsens, does not improve as expected, or other new concerns arise. HPI General Mode of arrival: ambulatory . Date/Time Provider Initiated Documentation: 07/14/22 08:25 . Limitations to Documentation: no limitations . Information obtained by: patient . HPI Narrative: 46-year-old female with history of headaches in the past, presents with chief complaint of headache. Patient notes headache came on gradually on 07/09/2022 and has been persistent. This is not the worst headache of her life although she has not had 1 this severe in a couple years. She notes she has tried taking Tylenol and ibuprofen without much relief. Patient denies associated fever. No numbness or weakness. No neck pain or stiffness. No visual changes. Related Data Home Medications Medication Instructions Recorded Confirmed acetaminophen 650 mg 650 mg PO Q12H 02/15/19 07/14/22 tablet,extended release (Tylenol Arthritis Pain) albuterol sulfate 90 mcg/actuation 2 puff inhalation Q6H PRN 02/17/21 07/14/22 aerosol inhaler (Proventil HFA) shortness of breath or wheezing ibuprofen 200 mg tablet 200 mg PO Q6H PRN 11/25/21 07/14/22 amoxicillin 875 mg tablet 875 mg PO BID #9 tabs 07/14/22 Previous Rx's Medication Instructions Recorded amoxicillin 875 mg tablet 875 mg PO BID #9 tabs 07/14/22 Allergies Allergy/AdvReac Type Severity Reaction Status Date / Time No Known Allergies Allergy Verified 07/14/22 08:14 General Stated Complaint: Headache MIGUEL: 4 Review of Systems All systems reviewed & are unremarkable except as noted in HPI and below Constitutional Constitutional: Denies fever(s) ENT Ears, Nose, Mouth, and Throat: Reports otalgia (rt) and Reports sinus pain (frontal) Cardiovascular Cardiovascular: Denies chest pain Neurologic Neurologic: Reports as per HPI PFSH All Active Problems (Updated 07/14/22 @ 09:54 by Arpit Wells MD) Headache (Acute) Acute otitis media, right (Acute) Hx of acute bronchitis with bronchospasm (Acute) Status post arthroscopy of left shoulder (Acute 10/01/21) Arthroscopic biceps tenodesis, extensive debridement, subacromial decompression Bilateral carpal tunnel syndrome (Acute) Acute lumbosacral myofascial strain (Acute) Biceps tendinitis of left shoulder (Acute) Cubital tunnel syndrome on left (Acute) Arthritis of left glenohumeral joint (Acute) Hip pain, right (Acute) Pneumonia (Acute) Abscess of toe, right (Acute) Cellulitis of right foot (Acute) Follow up (Acute) Hx of cholecystectomy (Chronic) 09/26/18 [facility] (Ayla Candelario DO) Biliary dyskinesia (Acute) H. pylori infection (Acute) Trochanteric bursitis, left hip (Chronic) Atopic dermatitis (Chronic) Tobacco use disorder (Chronic) Medical History Bursitis of left shoulder Depression Endometriosis (05/14/15) Helicobacter pylori (H. 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 Pets and animals: No Sexually active: No Current gender identity: female What type of physical activity do you participate in: walking Frequency: 5-6 times per week Do you feel safe at home: Yes Do you feel safe in your relationship?: Yes Exam Const General: cooperative and no acute distress HENMT Head: normocephalic and atraumatic Ears: right TM abnormal, TM normal on the left, EAC's normal, mastoids normal, no periauricular adenopathy and TM abnormal (right) bulging and erythematous Mouth: moist mucous membranes Eyes Conjunctivae: normal conjunctivae Sclera: normal sclerae Neck Neck: trachea midline and supple Resp Auscultation: clear to auscultation bilaterally, no rales, no rhonchi and no wheezes Cardio Rate: regular rate and not tachycardic Rhythm: regular rhythm GI Palpation: soft, not firm, no guarding, no masses, not rigid and nontender Skin General skin exam: no rashes or lesions noted Neuro General: patient alert, patient awake, patient oriented x3 and tone normal Cranial Nerves: CN's II-XI intact bilaterally Cognition: normal cognition Speech: speech normal Motor: strength 5/5 throughout Sensory Exam: no sensory deficits noted Other: Photophobia noted Extrem General: no edema Psych Appearance: grossly normal Mental Status: mental status grossly normal Speech and Movement: speech and movement normal Course Vital Signs Vital signs: Vital Signs Temperature 35.6 C L 07/14/22 08:10 Pulse 75 07/14/22 08:10 Respiratory Rate 18 07/14/22 08:10 Blood Pressure 128/69 07/14/22 08:10 Pulse Oximetry 96 07/14/22 08:10 Temperature 35.6 C L 07/14/22 08:10 Pulse 75 07/14/22 08:10 Respiratory Rate 18 07/14/22 08:10 Respiratory Effort Normal 07/14/22 08:15 Blood Pressure 128/69 07/14/22 08:10 Blood Pressure Position Sitting 07/14/22 08:10 Pulse Oximetry 96 07/14/22 08:10 Oxygen Delivery Method Room Air 07/14/22 08:10 Oxygen Flow Rate 0 07/14/22 08:10 Lab/Test Results Lab/Test Results: Laboratory Tests Range/Units 07/14/22 07/14/22 07/14/22 08:25 08:25 08:27 WBC Cancelled RBC Cancelled Hgb Cancelled Hct Cancelled MCV Cancelled MCH Cancelled MCHC Cancelled RDW Cancelled Plt Count Cancelled MPV Cancelled Immature Gran % Cancelled Neutrophils % Cancelled Band Neutrophils % Cancelled Lymphocytes % Cancelled Atypical Lymphs % Cancelled Monocytes % Cancelled Eosinophils % Cancelled Basophils % Cancelled Metamyelocytes % Cancelled Myelocytes % Cancelled Promyelocytes % Cancelled Other Cells % Cancelled Nucleated RBC % Cancelled Absolute Neutrophils Cancelled Absolute Lymphocytes Cancelled Absolute Monocytes Cancelled Absolute Eosinophils Cancelled Absolute Basophils Cancelled RBC Morphology Cancelled Polychromasia Cancelled Hypochromasia Cancelled Poikilocytosis Cancelled Basophilic Stippling Cancelled Anisocytosis Cancelled Microcytosis Cancelled Macrocytosis Cancelled Spherocytes Cancelled Tear Drop Cells Cancelled Ovalocytes Cancelled Stomatocytes Cancelled Bello-Kimberton Bodies Cancelled Mills Cells/Echinocytes Cancelled Acanthocytes (Spur) Cancelled Schistocytes Cancelled Sodium Cancelled Potassium Cancelled Chloride Cancelled Carbon Dioxide Cancelled Anion Gap Cancelled BUN Cancelled Creatinine Cancelled Est GFR (CKD-EPI 2020) Cancelled Glucose Cancelled Calcium Cancelled Magnesium Cancelled Total Bilirubin Cancelled AST Cancelled ALT Cancelled Alkaline Phosphatase Cancelled Creatine Kinase Cancelled Troponin I Cancelled Total Protein Cancelled Albumin Cancelled TSH Cancelled
[2022-07-14] MEDS: diphenhydrAMINE 50 MG/ML VIAL 25 MG IVP (09:03)
[2022-07-14] MEDS: Ketorolac 30 MG/ML VIAL IVP (09:05)
[2022-07-14] MEDS: Prochlorperazine 10 MG/2 ML VIAL IVP (09:06)
[2022-07-14 09:43] VITALS: BP 103/52; PULSE 66; RESP 16; O2SAT 97
== END 2022-07-14 10:05 | disposition home or self-care (01) ==
PROVIDERS: Emergency Provider Student in an Organized Health Care Education/Training Program; PCP Nurse Practitioner Family
DX: R51.9 Headache, unspecified (principal); H66.91 Otitis media, unspecified, right ear
CPT/HCPCS: 80053; 82550; 96361; 96374; 96375; 99284; 83735; 84443; 84484; 85025; J0780; J1200; J1885

== ENCOUNTER 2022-12-29 10:47 | Emergency (ER) | payer MEDICAID, SELFPAY ==
[2022-12-29 11:03] VITALS: BP 123/84; PULSE 92; RESP 18; TEMP 36.5; O2SAT 94
--- NOTE | 2022-12-29 11:12 | W.ED.GENAD ---
Discharge Plan Disposition Patient Disposition: Home Discharge Details Clinical Impression: Abdominal pain, Bladder wall thickening Primary Care Provider: Harriet Sousa ED Provider: Sangeetha James Home Meds and New Rx's Prescriptions: No Action ibuprofen 200 mg tablet 200 mg PO Q6H PRN acetaminophen [Tylenol Arthritis Pain] 650 mg tablet extended release 650 mg PO Q12H albuterol sulfate [Proventil HFA] 90 mcg/actuation HFA aerosol inhaler 2 puff inhalation Q6H PRN (Reason: shortness of breath or wheezing) amoxicillin 875 mg tablet 875 mg PO BID Qty: 9 0RF Discharge Instructions Instructions: Abdominal Pain (ED) Additional Instructions: 1. Alternate 1000 mg of acetaminophen every 3 hours with 400 to 600 mg of ibuprofen as needed for pain. 2. The urology office will call you for a follow-up appointment for the bladder wall thickening. 3. Return to the emergency department for any new or worrisome symptoms and call your primary care provider in the morning for a follow-up appointment and recheck. Discharge Data Discharge Physician: Sangeetha James Medical Decision Making This is a healthy 37-year-old female who presents with 3 days of abdominal pain which began as periumbilical abdominal pain and has now migrated to the right lower quadrant. She has had a total abdominal hysterectomy and oophorectomy secondary to severe endometriosis and she has also had a cholecystectomy but has never had an appendectomy. My plan is to obtain blood work including a CBC looking for leukocytosis, left shift and anemia. We will check her comprehensive metabolic panel to evaluate electrolytes blood sugar renal function and liver function test. I will order a CT of the abdomen and pelvis with IV contrast to rule out appendicitis and I will obtain a urine analysis to evaluate for a UTI. We will give her IV fluids and IV acetaminophen for pain. Disposition will depend on her ancillary services and CT. Other considerations are colitis, gastroenteritis, partial small bowel obstruction secondary to adhesions. I doubt she has Crohn's disease or Meckel's diverticulum. Differential Diagnosis Differential Diagnosis: Appendicitis, UTI, gastroenteritis Medical Records Medical records reviewed: Yes I reviewed the patient's medical records. Imaging Data Radiologic Study: Imaging: CT Scan (Abdomen pelvis with IV contrast) Radiologist's impression: Diffuse bladder wall thickening could indicate cystitis. The descending and sigmoid colon are decompressed, there is a question of wall thickening which could indicate colitis. Lab Data Lab results reviewed: Yes I reviewed the patient's lab results. Lab results narrative: Normal white count, normal H&H, normal electrolytes, normal LFTs, normal magnesium, normal total bilirubin, urine is negative for nitrite or leukocyte Estrace without any WBCs or RBCs. No evidence of UTI HPI General Date/Time Provider Initiated Documentation: 12/29/22 11:06. Limitations to Documentation: no limitations. Information obtained by: patient. HPI Narrative: The patient is a 47-year-old female who is a -0-1-2 who had a hysterectomy and oophorectomy at the age of 25 secondary to severe endometriosis. She presents with 3 days of right lower quadrant pain which began in the. The local region and has migrated to the right lower quadrant. She describes the pain as both sharp and dull. She has had some vomiting but denies any blood in the emesis. She has had soft stool as well which she described as the consistency of applesauce. She denies any dysuria. She denies any recent antibiotics, unusual foods, sick contacts or foreign travel. She has had a laparoscopic cholecystectomy and repair of ventral hernia. She is complaining of pain which we will send this morning and is 5-6 out of 10 in severity. It is aggravated by movement. She denies any fever or any vaginal discharge. She said Tylenol did not help. She has no history of an appendectomy. She denies any fevers or chills. The pain is primarily nonradiating and located in the right lower quadrant. She denies any aggravating or alleviating factors other than movement aggravates her pain. She also endorses anorexia. Related Data Home Medications Medication Instructions Recorded Confirmed acetaminophen 650 mg 650 mg PO Q12H 02/15/19 07/14/22 tablet,extended release (Tylenol Arthritis Pain) albuterol sulfate 90 mcg/actuation 2 puff inhalation Q6H PRN 02/17/21 07/14/22 aerosol inhaler (Proventil HFA) shortness of breath or wheezing ibuprofen 200 mg tablet 200 mg PO Q6H PRN 11/25/21 07/14/22 amoxicillin 875 mg tablet 875 mg PO BID #9 tabs 07/14/22 Previous Rx's Medication Instructions Recorded amoxicillin 875 mg tablet 875 mg PO BID #9 tabs 07/14/22 Allergies Allergy/AdvReac Type Severity Reaction Status Date / Time No Known Allergies Allergy Verified 07/14/22 08:14 General Stated Complaint: Abd Prob MIGUEL: 3 Review of Systems Narrative: see hpi Genitourinary Comments: History of endometriosis. Status post total abdominal hysterectomy PFSH All Active Problems (Updated 12/29/22 @ 15:29 by Sangeetha James MD) Abdominal pain (Acute) Bladder wall thickening (Acute) Hx of acute bronchitis with bronchospasm (Acute) Status post arthroscopy of left shoulder (Acute 10/01/21) Arthroscopic biceps tenodesis, extensive debridement, subacromial decompression Bilateral carpal tunnel syndrome (Acute) Acute lumbosacral myofascial strain (Acute) Biceps tendinitis of left shoulder (Acute) Cubital tunnel syndrome on left (Acute) Arthritis of left glenohumeral joint (Acute) Hip pain, right (Acute) Pneumonia (Acute) Abscess of toe, right (Acute) Cellulitis of right foot (Acute) Follow up (Acute) Hx of cholecystectomy (Chronic) 09/26/18 [facility] (Ayla Candelario DO) Biliary dyskinesia (Acute) H. pylori infection (Acute) Trochanteric bursitis, left hip (Chronic) Atopic dermatitis (Chronic) Tobacco use disorder (Chronic) Medical History Bursitis of left shoulder Depression Endometriosis (05/14/15) Helicobacter pylori (H. 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 Pets and animals: No Sexually active: No Current gender identity: female What type of physical activity do you participate in: walking Frequency: 5-6 times per week Do you feel safe at home: Yes Do you feel safe in your relationship?: Yes Exam Const General: cooperative, healthy appearing, comfortable, no acute distress, well developed, well groomed and well hydrated Nutritional Appearance: average body habitus and well nourished Orientation: alert, awake and oriented x3 HENMT Head: normal to inspection, normocephalic and atraumatic Ears: hearing grossly normal bilaterally and external ears normal General nose exam: external nose normal, nares normal and no nasal discharge Face and sinus: normal facial exam, sinuses nontender and face symmetric Mouth: oral mucosae normal, lip normal, tongue normal, oropharynx normal, moist mucous membranes and other (Normal phonation. The patient is handling secretions.) Throat: posterior oropharynx normal and uvula midline Eyes General: appearance normal, both eyes and all related structures Eyelids: eyelids normal Conjunctivae: conjunctivae normal Sclera: sclerae normal Cornea: corneas normal Pupils: PERRL EOM: EOM intact bilaterally and No nystagmus Neck Neck: normal visual inspection, full ROM, no lymphadenopathy, no meningeal signs, trachea midline and supple Lymphatic: no lymphadenopathy noted Chest Chest: normal inspection of the chest Resp Effort & Inspection: normal respiratory effort, able to speak in complete sentences, no audible wheezes, no nasal flaring, no respiratory distress, no retractions, no stridor, not tachypneic, no tracheal deviation, no use of accessory muscles, No prolonged expiratory phase and other (Normal inspiratory to expiratory ratio.) Auscultation: clear to auscultation bilaterally, no rales, no rhonchi, no wheezes and no rubs Tactile Fremitus: tactile fremitus absent Cardio Jugular venous pressure: no JVD Palpation: normal PMI Rate: regular rate Rhythm: regular rhythm Heart Sounds: S1 normal, S2 normal, no gallops, no murmurs and no rubs GI Inspection: normal to inspection and non-distended Palpation: soft, no hepatosplenomegaly, no guarding, no hepatosplenomegaly and tender (The patient does have tenderness in the right lower quadrant.) Percussion: normal to percussion Auscultation: normal bowel sounds Other: The patient has well-healed surgical scars consistent with a prior lap keila. The patient does have tenderness over McBurney's point. She has a positive psoas and obturator sign. There is no guarding or rebound. She does not have a fluid wave. General: No CVA tenderness Back/Spine/Pelvis Back: no CVA tenderness and No back tenderness Cervical Spine: normal cervical lordosis, cervical ROM normal, No cervical muscular tenderness, No pain with cervical ROM, No cervical spinal tenderness and No step off deformity Thoracic/Lumbar Spine: thoracic and lumbar spine normal to inspection, No thoracic spinal tenderness and No lumbar spinal tenderness Pelvis: no pain with anterior-posterior compression and no pain with lateral compression Skin General skin exam: no rashes or lesions noted, turgor normal, no petechiae, no purpura and other (Skin is normal for ethnicity.) Lesions: no lesions Rashes: no rashes Trauma: no lacerations or abrasions Neuro General: patient alert, patient awake, patient oriented x3, moves all extremities, no meningeal signs, no focal motor deficits and CN's II-XI intact bilaterally Cranial Nerves: CN's II-XI intact bilaterally, PERRL, accommodation normal, EOM intact bilaterally, no nystagmus, facial strength normal, tongue midline, hearing normal and no nystagmus Cognition: normal cognition Speech: speech normal Gait: normal gait Motor: muscle tone normal throughout and strength 5/5 throughout Sensory Exam: no sensory deficits noted Extrem General: normal to inspection, full ROM, capillary refill normal, no clubbing, cyanosis or edema and no calf tenderness Psych Appearance: grossly normal Affect: normal affect Attitude: cooperative Thought Process: normal Thought Content: normal Insight: insight good Judgment: judgment good Other: The patient appears to have capacity make medical decisions. Course The patient was counseled on the results of the CT scan. She was advised to follow-up with her primary care provider and to return here for any new or worrisome symptoms and advised to follow-up with urology (they will contact the patient) for bladder wall thickening.. The patient voiced understanding agreement with the discharge plan. All her questions and concerns were addressed prior to discharge. Vital Signs Vital signs: Vital Signs Temperature 36.5 C 12/29/22 11:03 Pulse 92 H 12/29/22 11:03 Respiratory Rate 18 12/29/22 11:03 Blood Pressure 123/84 12/29/22 11:03 Pulse Oximetry 94 12/29/22 11:03 Temperature 36.5 C 12/29/22 11:03 Temperature Source Skin 12/29/22 11:03 Pulse 92 H 12/29/22 11:03 Respiratory Rate 18 12/29/22 11:03 Respiratory Effort Normal 12/29/22 11:06 Blood Pressure 123/84 12/29/22 11:03 Blood Pressure Position Sitting 12/29/22 11:03 Pulse Oximetry 94 12/29/22 11:03 Oxygen Delivery Method Room Air 12/29/22 11:03 Oxygen Flow Rate 0 12/29/22 11:03 Pain Level 6 12/29/22 11:03
--- NOTE | 2022-12-29 11:30 | DI.CT_ITS ---
Exam(s) CT ABDOMEN PELVIS W EXAM: CT ABDOMEN PELVIS W CLINICAL HISTORY: RLQ pain. TECHNIQUE: Imaging Protocol: Axial computed tomography images with coronal and sagittal reformatted images were created and reviewed CONTRAST MATERIAL: Intravenous: Omnipaque 350 Contrast volume:100 ml Oral: yes / no COMPARISON: CT CT ABDOMEN PELVIS W from 06/11/[address] CHEST PE CTA from 12/29/2020 FINDINGS: ABDOMEN: Lung Bases: Normal where visualized. Liver: Normal density. No measurable mass. Gallbladder and biliary tract: Status post cholecystectomy. No radiodense calculus or dilation. Pancreas: Normal density, no abnormal calcifications or inflammatory process. Spleen: Normal. Kidneys: Normal size, contour and axis. Tiny nonobstructing stone lower pole left kidney. No suspici ous masses seen. Adrenal glands: No masses seen. Vasculature: Abdominal aorta non-dilated. Soft tissues: Surgical clips near the umbilicus. PELVIS: Bladder: Diffuse bladder wall thickening could indicate cystitis.. No calculi.No focal mass. Bowel: No obstruction. The descending and sigmoid colon are collapsed. There is question of diffus e wall thickening which could indicate colitis. There is no significant stranding in the surrounding fat. Appendix normal. Peritoneal cavity: No ascites, collection or mesenteric inflammatory response. Bones: Bilateral L5 spondylolysis and slight spondylolisthesis, unchanged. Reproductive organs: Status post hysterectomy. Lymph nodes: Unremarkable. IMPRESSION:: Diffuse bladder wall thickening could indicate cystitis. The descending and sigmoid colon are decompressed. There is a question of wall thickening which coul d indicate colitis. Findings called to Dr. James of the emergency department. RADIATION DOSE DELIVERED: 968.83mGy.cm Total DLP DATA REPOSITORY: All CT scans at this facility are submitted to the National Radiology Data Registry (NRDR) Dose Index Registry (DIR) with the [employer] (ACR). RADIATION OPTIMIZATION: All CT scans at this facility use at least one of these dose optimization te chniques: automated exposure control; mA and/or kV adjustment per patient size (includes targeted exa ms where dose is matched to clinical indication); or iterative reconstruction.
[2022-12-29] MEDS: Normal Saline 1,000 ML 1000 ML IV (12:01)
[2022-12-29] MEDS: ACETAMINOPHEN 1,000 MG/100 ML BTL 400 MG IVPB (12:01)
[2022-12-29 12:09] LABS: Abs Immature Grans 0.03 10^3/uL (0.0-0.06); Absolute Basophil Count 0.03 10^3/uL (0.0-0.2); Absolute Eosinophil Count 0.15 10^3/uL (0.0-0.7); Absolute Lymphocyte Count 2.58 10^3/uL (1.2-3.4); Absolute Monocyte Count 0.78 10^3/uL (0.1-0.8); Absolute Neutrophil Count 3.69 10^3/uL (1.2-6.7); Basophils % 0.4; Eosinophils % 2.1; HCT 42.3 % (36.0-46.0); HGB 14.9 g/dL (11.2-15.7); Immature Grans % 0.4; Lymphocytes % 35.5; MCH 30.6 pg (27.0-33.0); MCHC 35.2 % (32.0-36.0); MCV 87 fL (80-95); MPV 9.3 fL (8.0-11.0); Monocytes % 10.7; Neutrophils % 50.9; Platelet Count 257 10^3/uL (130-400); RBC 4.87 10^6/uL (3.93-5.22); RDW 12.1 % (11.7-14.6); RDW-SD 38.6 fL; WBC 7.26 10^3/uL (4.4-10.8)
[2022-12-29 12:35] LABS: ALT 17 U/L (14-59); AST 17 U/L (15-37); Albumin 3.5 g/dL (3.4-5.0); Alkaline Phosphatase 38 U/L (46-116); Anion Gap 9.1 mmol/L (3-11); BUN 13 mg/dL (7-18); Bilirubin, Total 0.2 mg/dL (0.2-1.0); CO2 25.9 mmol/L (21.0-32.0); CREATININE 0.8 mg/dL (0.55-1.02); Calcium 8.8 mg/dL (8.5-10.1); Chloride 104 mmol/L (98-107); Estimated GFR 90.27 (mL/min/1.73m2); Glucose 99 mg/dL (74-106); Lipase 41 U/L (16-77); Magnesium 2.1 mg/dL (1.8-2.4); Potassium 3.6 mmol/L (3.5-5.1); Sodium 139 mmol/L (136-145)
[2022-12-29] MEDS: Omnipaque 350 MG/ML 100 ML BTL IJ (12:48)
[2022-12-29] MEDS: Normal Saline - Diluent 50 ML VIAL IJ (12:48)
[2022-12-29 14:44] LABS: Bilirubin Negative (Negative); Blood Trace-intact (Negative); Clarity Clear (Clear); Glucose Negative (Negative); Ketones Negative (Negative); Leukocyte Esterase Negative (Negative); Nitrite Negative (Negative); Urobilinogen 0.2 mg/dL (Up to 0.2)
[2022-12-29 14:52] LABS: Bacteria Negative HPF (Negative); C & S Indicated? No; Casts Negative LPF (Negative); Crystals Negative HPF (Negative); Epithelial Cells Few HPF (Negative); Mucus Negative (Negative); RBC 0-2 HPF (0-2); WBC 0-2 HPF (0-5)
[2022-12-29 15:17] VITALS: BP 111/62; PULSE 58; RESP 14; TEMP 36.5; O2SAT 94
[2022-12-29 15:25] VITALS: TEMP 36.7
[2022-12-29 15:40] VITALS: PULSE 58; RESP 14; TEMP 36.7; O2SAT 94
--- NOTE | 2022-12-29 19:15 | NUR.NOTE ---
Pt placed on care management refferral list for bladder wall thickening within [address] James
== END 2022-12-29 15:56 | disposition home or self-care (01) ==
PROVIDERS: Emergency Provider Emergency Medicine Emergency Medical Services; PCP Nurse Practitioner Family
DX: R10.31 Right lower quadrant pain (principal); Z90.49 Acquired absence of other specified parts of digestive tract; Z90.710 Acquired absence of both cervix and uterus
CPT/HCPCS: 80053; 83690; 96361; 96365; 99285; 74177; 81003; 81015; 83735; 85025; J0131; J3490

== ENCOUNTER 2023-05-14 19:18 | Emergency (ER) | payer OTHER, SELFPAY ==
[2023-05-14 19:20] VITALS: BP 148/99; PULSE 95; RESP 15; TEMP 36.6; O2SAT 96
[2023-05-14 19:23] VITALS: BP 148/99; PULSE 95; RESP 15; TEMP 36.6; O2SAT 96
[2023-05-14] MEDS: Balanced Salt Solution 15 ML BTL OP (19:34)
--- NOTE | 2023-05-14 19:35 | W.ED.GENAD ---
HPI General Mode of arrival: ambulatory. Date/Time Provider Initiated Documentation: 05/14/23 19:22. Limitations to Documentation: no limitations. Information obtained by: patient. History of Present Illness 47 year old F presents to the emergency department with the chief complaint of right eye redness and itching, described as moderate, Patient started experiencing this day(s) (1) and it has been constant. No relieving factors improve symptom(s), No exacerbating factors reported . Patient notes denies fever/chills. Patient did receive the following treatments prior to arrival, none Related Data Home Medications Medication Instructions Recorded Confirmed acetaminophen 650 mg 650 mg PO Q12H 02/15/19 07/14/22 tablet,extended release (Tylenol Arthritis Pain) albuterol sulfate 90 mcg/actuation 2 puff inhalation Q6H PRN 02/17/21 07/14/22 aerosol inhaler (Proventil HFA) shortness of breath or wheezing ibuprofen 200 mg tablet 200 mg PO Q6H PRN 11/25/21 07/14/22 Allergies Allergy/AdvReac Type Severity Reaction Status Date / Time No Known Allergies Allergy Verified 05/10/23 10:55 General Stated Complaint: EyeProblem MIGUEL: 4 Review of Systems All systems reviewed & are unremarkable except as noted in HPI and below Constitutional Constitutional: Denies chills, Denies fever(s) and Denies weakness Eyes Eyes: Denies loss of vision Cardiovascular Cardiovascular: Denies chest pain and Denies dyspnea Respiratory Respiratory: Denies cough and Denies dyspnea Gastrointestinal Gastrointestinal: Denies abdominal pain, Denies nausea and Denies vomiting Genitourinary Genitourinary: Denies dysuria Neurologic Neurologic: Denies loss of vision and Denies weakness Exam Const General: no acute distress Orientation: alert [facility] Head: normal to inspection Ears: external ears normal General nose exam: external nose normal Mouth: moist mucous membranes Eyes Eyelids: eyelids normal Pupils: PERRL EOM: EOM intact bilaterally Neck Neck: normal visual inspection Resp Effort & Inspection: normal respiratory effort and able to speak in complete sentences Cardio Rate: regular rate Skin General skin exam: no rashes or lesions noted Neuro General: patient alert and patient oriented x3 Extrem General: normal to inspection Psych Mental Status: mental status grossly normal Course Vital Signs Vital signs: Vital Signs Temperature 36.6 C 05/14/23 19:20 Pulse 95 H 05/14/23 19:20 Respiratory Rate 15 05/14/23 19:20 Blood Pressure 148/99 H 05/14/23 19:20 Pulse Oximetry 96 05/14/23 19:20 Temperature 36.6 C 05/14/23 19:23 Temperature Source Oral 05/14/23 19:23 Pulse 95 H 05/14/23 19:23 Respiratory Rate 15 05/14/23 19:23 Respiratory Effort Normal 05/14/23 19:23 Blood Pressure 148/99 H 05/14/23 19:23 Blood Pressure Position Sitting 05/14/23 19:20 Pulse Oximetry 96 05/14/23 19:23 Oxygen Delivery Method Room Air 05/14/23 19:20 Oxygen Flow Rate 0 05/14/23 19:20 Pain Level 4 05/14/23 19:23 Medical Decision Making 47 yo female who wears contacts comes in with right eye redness and discomfort starting last night and accidnetally left her contacts in overnight and thinks her right contact is still in place on the right. denies trauma to the eye. she has no periorbital swelling, eomi, perrl, right conjunctiva is erythematous. No visible foreign bodies. Visual acuity done with contact in place in her left eye and none in her right eye. I placed tetracaine in her eye and she had relief of her symptoms and discomfort. I used flourescein staining and did not see a contact or other foreign bodies and no corneal abrasion. iop 17 in both eyes. Suspect conjunctivitis and irritation from contact that was in palce overnight, I do not see her contact still in her eye. 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, return precautions given Differential Diagnosis Differential Diagnosis: conjunctivitis, corneal abrasion, foreign body Quality:SDOH Health Related Social Needs: No Data to Display PFSH All Active Problems (Updated 05/14/23 @ 19:48 by Yaya Mendoza MD) Conjunctivitis of right eye (Acute) Hx of acute bronchitis with bronchospasm (Acute) Status post arthroscopy of left shoulder (Acute 10/01/21) Arthroscopic biceps tenodesis, extensive debridement, subacromial decompression Bilateral carpal tunnel syndrome (Acute) Acute lumbosacral myofascial strain (Acute) Biceps tendinitis of left shoulder (Acute) Cubital tunnel syndrome on left (Acute) Arthritis of left glenohumeral joint (Acute) Hip pain, right (Acute) Pneumonia (Acute) Abscess of toe, right (Acute) Cellulitis of right foot (Acute) Follow up (Acute) Hx of cholecystectomy (Chronic) 09/26/18 [facility] (Ayla Candelario DO) Biliary dyskinesia (Acute) H. pylori infection (Acute) Trochanteric bursitis, left hip (Chronic) Atopic dermatitis (Chronic) Tobacco use disorder (Chronic) Medical History Left rotator cuff tear Bursitis of left shoulder Depression Endometriosis (05/14/15) Helicobacter pylori (H. pylori) infection Surgical History Hysterectomy, Laproscopic (04/22/04) BSO Hernia Repair, Ventral (10/23/14) Dilation and curettage (02/11/04) laparoscopy w/ bx section (~1994) x1 Social History Smoking/Tobacco Use Status: Current every day Tobacco Type: cigarettes Years smoked: 25 Smoking risk assessment performed?: Yes Alcohol Intake: current Alcohol Intake frequency: holidays/special occasions only Alcohol type: hard liquor Drug use: Daily Substance use type: marijuana Household members: children Number of Children: 2 current occupation: [employer] Pets and animals: No Sexually active: No Current gender identity: female What type of physical activity do you participate in: walking Frequency: 5-6 times per week Do you feel safe at home: Yes Do you feel safe in your relationship?: Yes Discharge Plan Disposition Patient Disposition: Home Condition: Stable Discharge Details Clinical Impression: Conjunctivitis of right eye Primary Care Provider: Harriet Sousa ED Provider: Yaya Mendoza Home Meds and New Rx's Prescriptions: Continued ibuprofen 200 mg tablet 200 mg PO Q6H PRN acetaminophen [Tylenol Arthritis Pain] 650 mg tablet extended release 650 mg PO Q12H albuterol sulfate [Proventil HFA] 90 mcg/actuation HFA aerosol inhaler 2 puff inhalation Q6H PRN (Reason: shortness of breath or wheezing) Discharge Instructions Instructions: Conjunctivitis (ED) Additional Instructions: Instill 1 to 2 drops in affected eye(s) every 2 to 4 hours for the first 2 days, then instill 1 to 2 drops 4 times daily for an additional 5 days. 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
[2023-05-14 19:54] VITALS: BP 148/99; PULSE 95; RESP 15; TEMP 36.6; O2SAT 96
== END 2023-05-14 19:54 | disposition home or self-care (01) ==
PROVIDERS: Emergency Provider Emergency Medicine; PCP Nurse Practitioner Family
DX: H10.9 Unspecified conjunctivitis (principal)
CPT/HCPCS: 99283

== ENCOUNTER 2023-09-05 13:47 | Emergency (ER) | payer MEDICAID, SELFPAY ==
[2023-09-05 13:49] VITALS: BP 180/117; PULSE 91; RESP 18; TEMP 36.7; O2SAT 95
[2023-09-05] MEDS: Lidocaine/Epinephri/Tetracaine Topical Gel 3 ML (15:18)
--- NOTE | 2023-09-05 15:56 | ED.GENADUL_ITS ---
Discharge Plan Disposition Patient Disposition: Home Condition: Stable Discharge Details Clinical Impression: Laceration of thumb, right, complicated Primary Care Provider: Harriet Sousa ED Provider: Arpit Wells Home Meds and New Rx's Prescriptions: New cephalexin 500 mg tablet 500 mg PO TID Qty: 8 0RF Continued ibuprofen 200 mg tablet 200 mg PO Q6H PRN acetaminophen [Tylenol Arthritis Pain] 650 mg tablet extended release 650 mg PO Q12H albuterol sulfate [Proventil HFA] 90 mcg/actuation HFA aerosol inhaler 2 puff inhalation Q6H PRN (Reason: shortness of breath or wheezing) Discharge Instructions Instructions: Laceration (ED) Additional Instructions: Change dressing daily and monitor for signs of infection. Take antibiotic as prescribed. Please contact your primary care physician to arrange follow-up. Return to the ER immediately for any worsening or new concerning symptoms. Referrals: Harriet Sousa NP [Primary Care Provider] - [facility] General Mode of arrival: ambulatory . Date/Time Provider Initiated Documentation: 09/05/23 14:01 . Limitations to Documentation: no limitations . Information obtained by: patient . HPI Narrative: 48-year-old female presents with chief complaint of dressing adhered to wound. Patient notes she lacerated her right thumb on a mandolin slicer 2 days ago. She initially dressed the wound with gauze and was able to control bleeding. Unfortunate the gauze has adhered to the wound and she is unable to remove despite prolonged soaking. Pain is severe with any attempted removal. Related Data Home Medications Medication Instructions Recorded Confirmed acetaminophen 650 mg 650 mg PO Q12H 02/15/19 09/05/23 tablet,extended release (Tylenol Arthritis Pain) albuterol sulfate 90 mcg/actuation 2 puff inhalation Q6H PRN 02/17/21 09/05/23 aerosol inhaler (Proventil HFA) shortness of breath or wheezing ibuprofen 200 mg tablet 200 mg PO Q6H PRN 11/25/21 09/05/23 cephalexin 500 mg tablet 500 mg PO TID #8 tabs 09/05/23 Previous Rx's Medication Instructions Recorded cephalexin 500 mg tablet 500 mg PO TID #8 tabs 09/05/23 Allergies Allergy/AdvReac Type Severity Reaction Status Date / Time No Known Allergies Allergy Verified 09/05/23 13:51 General Stated Complaint: Laceration MIGUEL: 4 Review of Systems Integumentary/Breasts Skin/Breast: Reports as per HPI Exam Skin Other: Full-thickness skin avulsion distal right thumb with dressing adhered to the wound Course Vital Signs Vital signs: Vital Signs Temperature 36.7 C 09/05/23 13:49 Pulse 91 H 09/05/23 13:49 Respiratory Rate 18 09/05/23 13:49 Blood Pressure 180/117 H 09/05/23 13:49 Pulse Oximetry 95 09/05/23 13:49 Temperature 36.7 C 09/05/23 13:49 Temperature Source Temporal Artery Scan 09/05/23 13:49 Pulse 91 H 09/05/23 13:49 Respiratory Rate 18 09/05/23 13:49 Respiratory Effort Normal, Non-Labored 09/05/23 13:51 Blood Pressure 180/117 H 09/05/23 13:49 Blood Pressure Position Sitting 09/05/23 13:49 Pulse Oximetry 95 09/05/23 13:49 Oxygen Delivery Method Room Air 09/05/23 13:49 Oxygen Flow Rate 0 09/05/23 13:49 Pain Level 6 09/05/23 13:53 Medical Decision Making 48-year-old female here with deep skin avulsion of her distal right thumb that occurred on Tuesday. Patient initially had gauze dressing on the wound that has adhered to the wound and she is unable to remove. We attempted to soak the wound to remove dressing and this was not successful. Digital block was performed after informed consent. Gauze was peeled back off of the wound. Wound then started to bleed. A turnicot was applied applied for 4 minutes. Skin adhesive was used to achieve hemostasis. Sterile nonadherent dressing applied. Tetanus up-to-date. I will initiate treatment with Keflex given wound contamination as prophylaxis for infection over the next 3 days. Plan for outpatient follow-up with PCP. Usual customary discharge instructions were reviewed. Quality:SDOH Health Related Social Needs: No Data to Display PFSH All Active Problems Laceration of thumb, right, complicated (Acute) Hx of acute bronchitis with bronchospasm (Acute) Status post arthroscopy of left shoulder (Acute 10/01/21) Arthroscopic biceps tenodesis, extensive debridement, subacromial decompression Bilateral carpal tunnel syndrome (Acute) Acute lumbosacral myofascial strain (Acute) Biceps tendinitis of left shoulder (Acute) Cubital tunnel syndrome on left (Acute) Arthritis of left glenohumeral joint (Acute) Hip pain, right (Acute) Pneumonia (Acute) Abscess of toe, right (Acute) Cellulitis of right foot (Acute) Follow up (Acute) Hx of cholecystectomy (Chronic) 09/26/18 [facility] (Ayla Candelario, ) Biliary dyskinesia (Acute) H. pylori infection (Acute) Trochanteric bursitis, left hip (Chronic) Atopic dermatitis (Chronic) Tobacco use disorder (Chronic) Medical History Left rotator cuff tear Bursitis of left shoulder Depression Endometriosis (05/14/15) Helicobacter pylori (H. pylori) infection Surgical History Hysterectomy, Laproscopic (04/22/04) BSO Hernia Repair, Ventral (10/23/14) Dilation and curettage (02/11/04) laparoscopy w/ bx section (~1994) x1 Social History Smoking/Tobacco Use Status: Current every day Tobacco Type: cigarettes Years smoked: 25 Smoking risk assessment performed?: Yes Alcohol Intake: current Alcohol Intake frequency: holidays/special occasions only Alcohol type: hard liquor Drug use: Daily Substance use type: marijuana Household members: children Number of Children: 2 current occupation: [employer] Pets and animals: No Sexually active: No Current gender identity: female What type of physical activity do you participate in: walking Frequency: 5-6 times per week Do you feel safe at home: Yes Do you feel safe in your relationship?: Yes
[2023-09-05] MEDS: Lidocaine 1% Multi-Dose 50 ML VIAL IJ (16:05)
[2023-09-05] MEDS: Cephalexin 500 MG CAP PO (16:05)
[2023-09-05 16:06] VITALS: BP 123/83; PULSE 76; RESP 13; O2SAT 92
== END 2023-09-05 16:14 | disposition home or self-care (01) ==
PROVIDERS: Emergency Provider Student in an Organized Health Care Education/Training Program; PCP Nurse Practitioner Family
DX: W31.89XA Contact with other specified machinery, initial encounter; R03.0 Elevated blood-pressure reading, without diagnosis of hypertension; S61.001A Unspecified open wound of right thumb without damage to nail, initial encounter; F17.210 Nicotine dependence, cigarettes, uncomplicated
CPT/HCPCS: 12041

== ENCOUNTER 2023-09-12 04:47 | Outpatient (CLI) | payer MEDICAID, SELFPAY ==
[2023-09-12 14:34] LABS: HCT 45.7 % (36.0-46.0); HGB 15.8 g/dL (11.2-15.7); MCH 30.2 pg (27.0-33.0); MCHC 34.6 % (32.0-36.0); MCV 87 fL (80-95); MPV 9.6 fL (8.0-11.0); Platelet Count 247 10^3/uL (130-400); RBC 5.24 10^6/uL (3.93-5.22); RDW 12.1 % (11.7-14.6); WBC 6.69 10^3/uL (4.4-10.8)
[2023-09-12 15:16] LABS: Iron 90 ug/dL (50-170); Total Iron Binding Capacity 311 ug/dL (250-450); Transferrin Sat 29 % (15-50)
[2023-09-12 15:26] LABS: TSH (W/Ref FT4) 1.31 uIU/mL (0.36-3.74)
== END 2023-09-12 04:48 | disposition home or self-care (01) ==
LOC: LBO 04:48
PROVIDERS: PCP Nurse Practitioner Family; Visit Provider Family Medicine
DX: D64.9 Anemia, unspecified (principal); R53.83 Other fatigue
CPT/HCPCS: 36415; 85027; 83540; 83550; 84443

== ENCOUNTER 2024-11-30 14:03 | Emergency (ER) | payer SELFPAY ==
[2024-11-30 14:06] VITALS: BP 144/85; PULSE 95; RESP 16; TEMP 36.6; O2SAT 93
--- NOTE | 2024-11-30 14:14 | W.ED.GENAD ---
Discharge Plan Disposition Patient Disposition: Home Condition: Good Discharge Details Clinical Impression: Knee pain, right, Internal derangement of knee Primary Care Provider: Harriet Sousa ED Provider: Enriqueta Castaneda Home Meds and New Rx's Prescriptions: Continued ibuprofen 200 mg tablet 200 mg PO Q6H PRN acetaminophen [Tylenol Arthritis Pain] 650 mg tablet extended release 650 mg PO Q12H albuterol sulfate [Proventil HFA] 90 mcg/actuation HFA aerosol inhaler 2 puff inhalation Q6H PRN (Reason: shortness of breath or wheezing) Discharge Instructions Instructions: Knee Pain ED Additional Instructions: As we discussed, there is no evidence to suggest fracture or dislocation on your x-ray. However, you did have a fabella as well as some calcification of your tendon and some mild arthritis. Your history and exam however, are more consistent with a meniscal injury as we discussed. The brace should help with the swelling, stabilization and help with your discomfort. Please continue to encourage rest, ice, elevation. Tylenol and/or ibuprofen as needed for discomfort. Please take as directed on the packaging. Please call orthopedics to schedule follow-up appointment, number listed below. If you develop any new or worsening symptoms please seek care urgently once again. Referrals: Flash Burns MD [ [facility] STAFF PHYSICIAN, Orthopaedic Surgical] [facility] General Date/Time Provider Initiated Documentation: 11/30/24 14:14. Limitations to Documentation: no limitations. Information obtained by: patient and RN notes reviewed. History of Present Illness 49 year old F presents to the emergency department with the chief complaint of right knee shanika, described as moderate, with intensity rated at 5. and is localized to the right and lower extremity. Patient reports no radiation. Patient started experiencing this day(s) and it has been constant. Immobilization improves symptom(s), Movement worsens symptoms . Patient notes no other symptoms.. Patient did receive the following treatments prior to arrival, none Related Data Home Medications ?Medication ?Instructions ?Recorded ?Confirmed acetaminophen 650 mg 650 mg PO Q12H 02/15/19 11/30/24 tablet,extended release (Tylenol Arthritis Pain) albuterol sulfate 90 mcg/actuation 2 puff inhalation Q6H PRN 02/17/21 11/30/24 aerosol inhaler (Proventil HFA) shortness of breath or wheezing ibuprofen 200 mg tablet 200 mg PO Q6H PRN 11/25/21 11/30/24 Allergies Allergy/AdvReac Type Severity Reaction Status Date / Time No Known Allergies Allergy Verified 11/30/24 14:09 General Stated Complaint: Orthopedic MIGUEL: 4 Review of Systems Constitutional Constitutional: Reports as per HPI, Denies fever(s) and Denies weakness Cardiovascular Cardiovascular: Reports as per HPI Respiratory Respiratory: Reports as per HPI and Denies cough Musculoskeletal Musculoskeletal: Reports as per HPI and Denies tingling Integumentary/Breasts Skin/Breast: Reports as per HPI, Denies rash and Denies wounds Neurologic Neurologic: Reports as per HPI, Denies tingling, Denies paresthesias and Denies weakness Exam Const General: cooperative, healthy appearing, comfortable, no acute distress, well developed and well groomed Nutritional Appearance: well nourished and overweight Orientation: alert and awake Resp Effort & Inspection: normal respiratory effort, able to speak in complete sentences and no respiratory distress Cardio Rate: regular rate Rhythm: regular rhythm Skin General skin exam: no rashes or lesions noted Lesions: no lesions Rashes: no rashes Trauma: no lacerations or abrasions Neuro General: patient alert and patient awake Cognition: normal cognition Speech: speech normal Motor: muscle tone normal throughout Sensory Exam: no sensory deficits noted Extrem Knee images:  1. Area of maximal tenderness along the medial aspect of the right knee. Patient is 2+ distal pulses. Sensation is intact. Good range of motion of the ankle. Full range of motion of the knee although she does report increased discomfort at extremes of both flexion and extension. Pain is primarily anterior and medial. She does have some discomfort with straight leg raise as well as with palpation over the inferior aspect of the patella tendon although no erythema or swelling is appreciated. No joint effusion. She is ligamentously intact with varus and valgus stress testing as well as with anterior and posterior drawer testing. No calf pain with palpation. Course Vital Signs Vital signs: Vital Signs Temperature 36.6 C 11/30/24 14:06 Pulse 95 H 11/30/24 14:06 Respiratory Rate 16 11/30/24 14:06 Blood Pressure 144/85 H 11/30/24 14:06 Pulse Oximetry 93 11/30/24 14:06 Temperature 36.6 C 11/30/24 14:06 Temperature Source Oral 11/30/24 14:06 Pulse 95 H 11/30/24 14:06 Respiratory Rate 16 11/30/24 14:06 Blood Pressure 144/85 H 11/30/24 14:06 Blood Pressure Position Sitting 11/30/24 14:06 Pulse Oximetry 93 11/30/24 14:06 Oxygen Delivery Method Room Air 11/30/24 14:06 Oxygen Flow Rate 0 11/30/24 14:06 Pain Level 5 11/30/24 14:06 Medical Decision Making Patient is a pleasant 49-year-old female presented with chief complaint of right knee pain. She reports this began 4 days ago after carrying a green bag and. States that she only had to go up 1 step and that this is not an unusual movement for her. She denies any sudden onset of pain but rather, patient states that this was more of a slow development of discomfort after this activity. She does report that she has had issues with this knee in the past and has had catching and locking, particularly after squatting or deep bending activities, but is never been diagnosed with any knee abnormalities, has never had this evaluated and has not part regularly had any surgery. She denies any recent fever. Denies any significant trauma. On exam, patient appears nontoxic. She is hemodynamically stable. Exam of the right lower extremity reveals it to be neurovascular intact with 2+ distal pulses and intact sensation. She is good range of motion of the knee and ankle. No joint effusion. She does have some slight discomfort over the inferior aspect of the patellar tendon over where her patellar bursa would be located although patient denies having any prolonged kneeling or injury that regard. She is able to straight leg raise well although she does have some slight discomfort with this. She is ligamentously intact with varus and valgus stress testing as well as with anterior and posterior drawer testing. She does have some joint line tenderness medially. Will obtain x-ray to evaluate for any bony abnormality. X-ray was reviewed by myself. Patient does have a fabella posteriorly. She does have some calcification of the superior aspect of the patellar tendon. Some slight narrowing of the medial compartment but otherwise no significant abnormality is noted by myself. No indication of fracture or dislocation. Discussed these findings with the patient. Her history of catching, locking as well as exacerbation with twisting or squatting makes me more concerned for meniscal injury. Will put her in a hinged knee brace to help with any swelling and discomfort, add some support. Encourage follow-up with orthopedics, she will call tomorrow to schedule follow-up appointment. Return precautions were discussed. All of her questions or concerns were addressed and patient is in agreement this plan. [facility] All Active Problems (Updated 11/30/24 @ 15:43 by ERIK Parsons) Internal derangement of knee (Acute) Knee pain, right (Acute) Hx of acute bronchitis with bronchospasm (Acute) Status post arthroscopy of left shoulder (Acute 10/01/21) Arthroscopic biceps tenodesis, extensive debridement, subacromial decompression Bilateral carpal tunnel syndrome (Acute) Acute lumbosacral myofascial strain (Acute) Biceps tendinitis of left shoulder (Acute) Cubital tunnel syndrome on left (Acute) Arthritis of left glenohumeral joint (Acute) Hip pain, right (Acute) Pneumonia (Acute) Abscess of toe, right (Acute) Cellulitis of right foot (Acute) Follow up (Acute) Hx of cholecystectomy (Chronic) 09/26/18 [facility] (Ayla Candelario DO) Biliary dyskinesia (Acute) H. pylori infection (Acute) Trochanteric bursitis, left hip (Chronic) Atopic dermatitis (Chronic) Tobacco use disorder (Chronic) Medical History Left rotator cuff tear Bursitis of left shoulder Depression Endometriosis (05/14/15) Helicobacter pylori (H. pylori) infection Surgical History Hysterectomy, Laproscopic (04/22/04) BSO Hernia Repair, Ventral (10/23/14) Dilation and curettage (02/11/04) laparoscopy w/ bx section (~1994) x1 Social History Smoking/Tobacco Use Status: Current every day Tobacco Type: cigarettes Years smoked: 25 Smoking risk assessment performed?: Yes Alcohol Intake: current Alcohol Intake frequency: holidays/special occasions only Alcohol type: hard liquor Drug use: Daily Substance use type: marijuana Household members: children Number of Children: 2 current occupation: [employer] Pets and animals: No Sexually active: No Current gender identity: female What type of physical activity do you participate in: walking Frequency: 5-6 times per week Do you feel safe at home: Yes Do you feel safe in your relationship?: Yes
--- NOTE | 2024-11-30 14:45 | DI.RAD_ITS ---
Exam(s) XR KNEE RT 4V AP,LAT,REYNA,PAT EXAM: XR KNEE RT 4V AP,LAT,REYNA,PAT CLINICAL HISTORY: medial pain. TECHNIQUE: 2D digital imaging was performed. Three views. COMPARISON: CR RIGHT KNEE 3 VIEWS from 06/04/2014 FINDINGS: BONES: No acute fracture is present. No bony destructive lesion is seen. Enthesophyte at superior pole of the patella. JOINTS: The knee is normally aligned. A small joint effusion is seen. Spurring at the articular aspect of the patella. The joint spaces are maintained. SOFT TISSUE: Normal. IMPRESSION: Small joint effusion. Mild degenerative changes. No acute abnormality. DATA REPOSITORY: RADIATION DOSE DELIVERED:
[2024-11-30 15:53] VITALS: BP 144/85; PULSE 95; RESP 16; TEMP 36.6; O2SAT 93
== END 2024-11-30 15:59 | disposition home or self-care (01) ==
PROVIDERS: Emergency Provider Physician Assistant; PCP Nurse Practitioner Family
DX: M25.561 Pain in right knee; M23.91 Unspecified internal derangement of right knee
CPT/HCPCS: 99283 ×2; 29505; 73564